=== PATIENT | female | born 1965 | race Two or more races ===

== ENCOUNTER 2024-05-05 09:59 | Outpatient (RCR) | payer MEDICAID, SELFPAY ==
[2024-05-03 08:55] LABS: Basophils # (Auto) 0.1 Thou/mm3 (0.0-0.2); Basophils % (Auto) 1 % (0-2.5); Eosinophils # (Auto) 0.1 Thou/mm3 (0.0-0.5); Eosinophils % (Auto) 2 % (0-10); Hematocrit 36.8 % (36.0-46.0); Hemoglobin 12.3 g/dL (12.0-16.0); Immature Granulocytes % (Auto) 0 % (0-0); Immature Granulocytes Auto 0.03 Thou/mm3 (0.00-0.00); Lymphocytes # (Auto) 2.5 Thou/mm3 (1.0-4.8); Lymphocytes % (Auto) 27 % (10-50); Mean Corpuscular HGB Conc 33.4 g/dl (31.0-37.0); Mean Corpuscular Hemoglobin 29.9 pg (25.0-35.0); Mean Corpuscular Volume 89 fL (80-100); Monocytes # (Auto) 0.8 Thou/mm3 (0.0-0.8); Monocytes % (Auto) 9 % (0-12); Neutrophils # (Auto) 5.7 Thou/mm3 (1.8-7.7); Neutrophils % (Auto) 62 % (37-80); Nucleated Red Blood Cell % 0 /100 WBC (0); Platelet Count 280 Thou/mm3 (140-440); RDW Standard Deviation 45.5 fL (36.4-46.3); Red Blood Count 4.12 Miln/mm3 (4.00-5.20); White Blood Count 9.2 Thou/mm3 (3.6-11.0)
[2024-05-03 09:12] LABS: Alanine Aminotransferase 56 U/L (10-49); Albumin, Serum 4.7 gm/dL (3.5-5.0); Albumin/Globulin Ratio 1.7 (1.2-2.2); Alkaline Phosphatase 163 U/L (46-116); Anion Gap 8 (7-16); Aspartate Amino Transferase 58 U/L (0-34); BUN/Creatinine Ratio 26 Ratio (12-20); Bilirubin,Total 0.3 mg/dL (0.3-1.2); Blood Urea Nitrogen 13 mg/dL (9-23); Calcium 10.1 mg/dL (8.3-10.6); Calcium (Corrected) 10.1 mg/dL (8.5-10.1); Carbon Dioxide 25.5 mMol/L (20.0-31.0); Chloride 104 mMol/L (98-107); Creatinine (Component) 0.5 mg/dL (0.6-1.3); Globulin 2.8 gm/dL (2.3-3.5); Glucose 211 mg/dL (74-106); Osmolality,Calculated 279 (275-295); Potassium 4.2 mMol/L (3.4-5.1); Sodium 137 mMol/L (136-145); Total Protein 7.5 gm/dL (5.7-8.2); eGFR > 60 See Note
[2024-05-03 09:22] LABS: Carcinoembryonic Antigen 3.4 ng/mL (0.0-5.0)
== END 2024-05-20 23:59 | disposition home or self-care (01) ==
LOC: SCTC 09:59
PROVIDERS: PCP Physician Assistant; Referring Provider Physician Assistant; Visit Provider Internal Medicine Hematology & Oncology
DX: Z51.11 Encounter for antineoplastic chemotherapy (principal); C19 Malignant neoplasm of rectosigmoid junction; C78.7 Secondary malignant neoplasm of liver and intrahepatic bile duct; E11.42 Type 2 diabetes mellitus with diabetic polyneuropathy; Z79.84 Long term (current) use of oral hypoglycemic drugs; Z79.4 Long term (current) use of insulin; I10 Essential (primary) hypertension; E66.9 Obesity, unspecified; Z68.33 Body mass index [BMI] 33.0-33.9, adult; R91.1 Solitary pulmonary nodule
CPT/HCPCS: 80053; 82378; 85025; 96366; 96367; 96375; 96413; 96416; A4216; J0640; J1100; J1200; J1453; J1642; J2405; J3490; J9055; J9190

== ENCOUNTER 2024-06-09 09:30 | Outpatient (RCR) | payer MEDICAID, SELFPAY ==
[2024-05-24 08:20] LABS: Basophils # (Auto) 0.1 Thou/mm3 (0.0-0.2); Basophils % (Auto) 1 % (0-2.5); Eosinophils # (Auto) 0.1 Thou/mm3 (0.0-0.5); Eosinophils % (Auto) 1 % (0-10); Hematocrit 36.9 % (36.0-46.0); Hemoglobin 12.4 g/dL (12.0-16.0); Immature Granulocytes % (Auto) 1 % (0-0); Immature Granulocytes Auto 0.05 Thou/mm3 (0.00-0.00); Lymphocytes # (Auto) 2.6 Thou/mm3 (1.0-4.8); Lymphocytes % (Auto) 29 % (10-50); Mean Corpuscular HGB Conc 33.6 g/dl (31.0-37.0); Mean Corpuscular Hemoglobin 29.7 pg (25.0-35.0); Mean Corpuscular Volume 89 fL (80-100); Monocytes # (Auto) 0.6 Thou/mm3 (0.0-0.8); Monocytes % (Auto) 7 % (0-12); Neutrophils # (Auto) 5.5 Thou/mm3 (1.8-7.7); Neutrophils % (Auto) 61 % (37-80); Nucleated Red Blood Cell % 0 /100 WBC (0); Platelet Count 303 Thou/mm3 (140-440); Red Blood Count 4.17 Miln/mm3 (4.00-5.20)
[2024-05-24 08:42] LABS: Alanine Aminotransferase 53 U/L (10-49); Alkaline Phosphatase 192 U/L (46-116); Anion Gap 11 (7-16); Aspartate Amino Transferase 56 U/L (0-34); BUN/Creatinine Ratio 22 Ratio (12-20); Bilirubin,Total 0.3 mg/dL (0.3-1.2); Blood Urea Nitrogen 13 mg/dL (9-23); Calcium 9.9 mg/dL (8.3-10.6); Calcium (Corrected) 9.9 mg/dL (8.5-10.1); Carbon Dioxide 24.5 mMol/L (20.0-31.0); Chloride 102 mMol/L (98-107); Creatinine (Component) 0.6 mg/dL (0.6-1.3); Globulin 2.5 gm/dL (2.3-3.5); Glucose 246 mg/dL (74-106); Osmolality,Calculated 281 (275-295); Potassium 4.1 mMol/L (3.4-5.1); Sodium 137 mMol/L (136-145); Total Protein 7.5 gm/dL (5.7-8.2); eGFR > 60 See Note
[2024-05-24 09:01] LABS: Carcinoembryonic Antigen 2.8 ng/mL (0.0-5.0)
[2024-06-07 08:32] LABS: Basophils % (Auto) 0 % (0-2.5); Eosinophils # (Auto) 0.2 Thou/mm3 (0.0-0.5); Eosinophils % (Auto) 2 % (0-10); Hematocrit 35.8 % (36.0-46.0); Immature Granulocytes % (Auto) 0 % (0-0); Immature Granulocytes Auto 0.03 Thou/mm3 (0.00-0.00); Lymphocytes # (Auto) 2.8 Thou/mm3 (1.0-4.8); Lymphocytes % (Auto) 27 % (10-50); Mean Corpuscular HGB Conc 33.5 g/dl (31.0-37.0); Mean Corpuscular Volume 87 fL (80-100); Monocytes # (Auto) 0.7 Thou/mm3 (0.0-0.8); Monocytes % (Auto) 7 % (0-12); Neutrophils # (Auto) 6.4 Thou/mm3 (1.8-7.7); Neutrophils % (Auto) 63 % (37-80); Nucleated Red Blood Cell % 0 /100 WBC (0); Platelet Count 263 Thou/mm3 (140-440); RDW Standard Deviation 41.5 fL (36.4-46.3); Red Blood Count 4.14 Miln/mm3 (4.00-5.20); White Blood Count 10.1 Thou/mm3 (3.6-11.0)
[2024-06-07 08:54] LABS: Alanine Aminotransferase 48 U/L (10-49); Albumin, Serum 4.8 gm/dL (3.5-5.0); Albumin/Globulin Ratio 1.8 (1.2-2.2); Alkaline Phosphatase 166 U/L (46-116); Anion Gap 9 (7-16); Aspartate Amino Transferase 50 U/L (0-34); BUN/Creatinine Ratio 22 Ratio (12-20); Bilirubin,Total 0.3 mg/dL (0.3-1.2); Blood Urea Nitrogen 13 mg/dL (9-23); Calcium 9.8 mg/dL (8.3-10.6); Calcium (Corrected) 9.8 mg/dL (8.5-10.1); Carbon Dioxide 25.6 mMol/L (20.0-31.0); Chloride 101 mMol/L (98-107); Creatinine (Component) 0.6 mg/dL (0.6-1.3); Globulin 2.7 gm/dL (2.3-3.5); Glucose 182 mg/dL (74-106); Osmolality,Calculated 277 (275-295); Potassium 4.2 mMol/L (3.4-5.1); Sodium 136 mMol/L (136-145); Total Protein 7.5 gm/dL (5.7-8.2); eGFR > 60 See Note
[2024-06-07 08:57] LABS: Carcinoembryonic Antigen 3.2 ng/mL (0.0-5.0)
--- NOTE | 2024-06-18 23:49 | CTCFLWUP_ITS ---
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 K-corina wild-type, NRAS wild-type Peripheral neuropathy secondary to diabetes as well as previous oxali platin which was given in the adjuvant setting. 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 2018 patient started to have rectal bleeding. 05/16/2019: Patient had EGD? May 2020: Patient had colonoscopy done in [place] by colon cancer. I was not able to ge t pathology report and colonoscopppy report. 07/04/2020: Patient had colon surgery? pathology report showed the following. 08/21/2020: My risk genetic test? 09/10/2020?November 2020: Patient was treated with 3 months of Cape ox chemotherapy in the adjuvant settin g. 10/05/2020: PET CT scan negative. 01/02/2021: CEA 4.3. 05/09/2021: CEA 2.8. 06/05/2021: CT scan of the chest abdomen and pelvis with IV contrast?negative for metastatic disease. 09/23/2021: CEA 3.9. 01/22/2022 CEA 3.3, hemoglobin 11.1, MCV 89, WBC 10.6, ANC 5.2, platelets 350,000. Creatinine 0.48. 08/31/2022: CEA 5.5. 12/29/2022: CEA 6.8. 11/09/2022: CT scan of the chest abdomen and pelvis with IV contrast 02/24/2023: CT-guided biopsy of the right lobe liver lesion? 11/28/2019: [facility] CDx study 03/24/2023: Ms. Medina is started on FOLFIRI plus bevacizumab. 08/05/2023: MRI of the abdomen with and without IV contrast 09/01/2023: Ms. Medina received her last dose of FOLFIRI and bevacizumab. 09/22/2023: CT scan of the chest abdomen and pelvis without contrast 10/13/2023: Patient is started on modified FOLFOX 7 and cetuximab. 11/04/2023: PET/CT scan? 02/03/2024: CT scan of the chest without IV contrast? 02/08/2024: MRI of the abdomen with and without contrast? 02/18/2024: Dr. Abhishek mcclelland of [facility] did not feel that Ms. Medina is a surgical candidate. OTHER MEDICAL HISTORY/CONDITIONS: FAMILY HISTORY: ?Clone Family Hx? 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 atorvastatin - 40 mg 1 tab Daily 2. Calcium 600 + D(3) - 600 mg(1,500mg) -200 unit 1 tab Daily 3. Compazine - 10 mg 1 tab Three times a day 4. cranberry extract - 650 mg 1 Capsule Daily 5. cyanocobalamin (vitamin B-12) - 1,000 mcg 1 tab Daily 6. fexofenadine - 180 mg 1 tab Daily 7. glipiZIDE - 10 mg 2 tab Twice a Day 8. HumuLIN N NPH Insulin KwikPen - 100 unit/mL (3 mL) 75 Unit As directed 9. HumuLIN R U-100 - 100 unit/mL As directed 10. Hydrocortisone (Topical) - 1 % 1 As directed 11. Imodium A-D - 2 mg 1 tab one tab po three times a day prn diarrhea 12. lisinopril - 10 mg 1 tab Daily 13. Lomotil - 2.5-0.025 mg 1 tab one po four times a day prn diarrhea 14. metFORMIN - 1,000 mg 1 tab Twice a Day 15. multivitamin - 1 tab Daily 16. Zofran - 8 mg 1 tab Three times a day?Palabra Meds? Medications Last Reconciled by Caprice Cerda MA on 06/05/2024 ALLERGIES: No Known Drug Allergies REVIEW OF SYSTEMS: A complete 14-point review of systems was performed and is negative except as noted in interval histo ry. PHYSICAL EXAMINATION: VITAL SIGNS: Temperature?99.2, B/P?127/83, Oxygen?Saturation?97% Weight?176?lbs (Change?since?05/26/24 :?-3.4?lbs) PAIN: 0 - No pain GENERAL APPEARANCE: Appears well, in no apparent distress, appropriately interactive. HEENT: Normocephalic, no temporal wasting, normal conjunctiva, no scleral icterus, normal hearing, li ps without lesions, neck normal range of motion. CARDIOVASCULAR: Not assessed. PULMONARY: Normal respiratory effort, no respiratory distress or use of accessory muscles, speaking i n full sentences, no tachypnea. EXTREMITIES: No pedal edema or cyanosis. SKIN: Normal skin appearance. NEUROLOGIC: Alert and oriented x4. PSHYCHIATRIC: Appropriate affect, mood normal, behavior normal, intact thought and speech. 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 K-corina wild-type, NRAS wild-type Peripheral neuropathy secondary to diabetes as well as previous oxaliplatin which was given in the ad juvant setting. 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 S/p surgery as described above. S/p 3 cycles of Cape ox c hemotherapy in the adjuvant setting. Ms. Medina is thought to be not a surgical candidate as per [facility] gastroenterology oncology department physician Dr. Abhishek mcclelland. MRI of the abdomen as well as CT scan of the chest showed stable disease as documented above. Ms. Medina had consultation with Dr. Hans Loya of gastrointestinal surgical oncology program. PET CT scan done on 11/04/2023 showed interval weekly hypermetabolic 15 mm pulmonary nodule in the rig ht upper lobe. No hypermetabolic areas were noted in the abdomen. on modified FOLFOX 7+ cetuximab since 10/13/2023. Tolerating reasonably well. Patient received FOLFIRI and bevacizumab previously \ Continue current therapy will repeat scans in 2 months #2 obesity diabetes and hypertension Patient have chronic medical conditions Advise diet and exercise and close follow-up with the primary care CBC CMP CEA CT scan chest abdomen pelvis with IV contrast RETURN TO CLINIC: I will see her back in the clinic in 2 months. BILLING AND COMPLIANCE: I reviewed external records from providers outside my specialty as summarized above. I spent a total of 50 minutes on this patient?s care on the day of their visit excluding time spent related to any bi lled procedures. This time includes time spent with the patient as well as time spent documenting in the medical record, reviewing patients records and tests, obtaining history, placing orders, communi cating with other healthcare professionals, counseling the patient, family or caregiver, and/or care coordination for the diagnoses above. Electronically Signed by: Leo Vee MD T: 11:47 PM CC: PCP: Donald Isaacs Referring: Donald Isaacs This document was completed utilizing speech recognition software. Grammatical errors, random word in sertions, pronoun errors, and incomplete sentences are an occasional consequence of this system due t o software limitations, ambient noise, and hardware issues. Any formal questions or concerns about e content, text or information contained within the body of this dictation should be directly address ed to the provider for clarification.
== END 2024-06-20 23:59 | disposition home or self-care (01) ==
LOC: SCTC 09:30
PROVIDERS: PCP Physician Assistant; Referring Provider Physician Assistant; Visit Provider Internal Medicine Hematology & Oncology
DX: Z51.11 Encounter for antineoplastic chemotherapy (principal); C19 Malignant neoplasm of rectosigmoid junction; C78.7 Secondary malignant neoplasm of liver and intrahepatic bile duct; E11.42 Type 2 diabetes mellitus with diabetic polyneuropathy; Z79.4 Long term (current) use of insulin; Z79.84 Long term (current) use of oral hypoglycemic drugs; I10 Essential (primary) hypertension; E66.9 Obesity, unspecified; Z68.33 Body mass index [BMI] 33.0-33.9, adult; R91.1 Solitary pulmonary nodule
CPT/HCPCS: 80053; 82378; 85025; 96367; 96375; 96413; 96416; 99212; A4216; J0640; J1100; J1200; J1453; J1642; J2405; J3490; J9055; J9190; G0463

== ENCOUNTER → 2024-07-06 | Outpatient (CLI) | payer MEDICAID, SELFPAY ==
--- NOTE | 2024-07-06 12:00 | XR_ITS ---
Examination: CT chest with intravenous contrast CT abdomen with intravenous contrast CT pelvis with intravenous contrast 2-D coronal and sagittal reconstructions Time of exam: July 06, 2024 1256 hours Comparison February 04, 2024 INDICATIONS: Diagnosis malignant neoplasm sigmoid colon 2022, metastases to lung and liver, shortness of breath right upper abdominal pain beginning 2 months ago CTDI: vol (mGy) : 22.3 DLP: (mGycm): 1010 Technique: Multiple axial images of the chest, abdomen and pelvis with intravenous contrast, 3.0 mm slice thickness. Images obtained post intravenous injection Isovue 370 60 cc. 2-D sagittal and coronal reconstructions. Low dose protocols were performed. One or more of the following dose reduction techniques were used; automated exposure control, adjustment of the mA and/or KV according to patient size, use of iterative reconstruction technique. Findings: 5 mm anterior right thyroid nodule No thoracic aortic aneurysmal dilatation No pulmonary artery emboli No interval pathologic mediastinal lymphadenopathy Stable right lung pulmonary nodules No pneumonia or pulmonary edema Stable 13 mm anterior 20 mm posterior right lobe liver lesions No new liver lesions Absent gallbladder Normal pancreas Spleen not enlarged No hydronephrosis or renal calculi Aorta normal size No ascites No bowel obstruction 7.8 cm anterior pelvic hernia defect containing colon no incarcerated bowel No pelvic mass Bladder intact IMPRESSION: 5 mm right thyroid nodule Stable right lung pulmonary nodules Stable right lobe liver lesions No interval abdominal or pelvic lymphadenopathy
== END | disposition home or self-care (01) ==
LOC: CCTX 11:31
PROVIDERS: PCP Physician Assistant; Referring Provider Internal Medicine Hematology & Oncology; Visit Provider Internal Medicine Hematology & Oncology
DX: E04.1 Nontoxic single thyroid nodule (principal); R91.8 Other nonspecific abnormal finding of lung field; K76.9 Liver disease, unspecified; C18.7 Malignant neoplasm of sigmoid colon; C78.7 Secondary malignant neoplasm of liver and intrahepatic bile duct
CPT/HCPCS: 71260; 74177; A4649; Q9967

== ENCOUNTER 2024-07-12 11:08 | Outpatient (RCR) | payer MEDICAID, SELFPAY ==
[2024-06-26 08:55] LABS: Basophils # (Auto) 0.1 Thou/mm3 (0.0-0.2); Basophils % (Auto) 1 % (0-2.5); Eosinophils # (Auto) 0.1 Thou/mm3 (0.0-0.5); Eosinophils % (Auto) 2 % (0-10); Hematocrit 37.1 % (36.0-46.0); Hemoglobin 12.3 g/dL (12.0-16.0); Immature Granulocytes % (Auto) 0 % (0-0); Immature Granulocytes Auto 0.03 Thou/mm3 (0.00-0.00); Lymphocytes # (Auto) 2.8 Thou/mm3 (1.0-4.8); Lymphocytes % (Auto) 31 % (10-50); Mean Corpuscular HGB Conc 33.2 g/dl (31.0-37.0); Mean Corpuscular Hemoglobin 28.9 pg (25.0-35.0); Mean Corpuscular Volume 87 fL (80-100); Monocytes # (Auto) 0.7 Thou/mm3 (0.0-0.8); Monocytes % (Auto) 8 % (0-12); Neutrophils # (Auto) 5.4 Thou/mm3 (1.8-7.7); Neutrophils % (Auto) 59 % (37-80); Nucleated Red Blood Cell % 0 /100 WBC (0); Platelet Count 303 Thou/mm3 (140-440); Red Blood Count 4.25 Miln/mm3 (4.00-5.20); White Blood Count 9.2 Thou/mm3 (3.6-11.0)
[2024-06-26 09:09] LABS: Alanine Aminotransferase 47 U/L (10-49); Albumin, Serum 4.8 gm/dL (3.5-5.0); Albumin/Globulin Ratio 1.8 (1.2-2.2); Alkaline Phosphatase 173 U/L (46-116); Anion Gap 9 (7-16); Aspartate Amino Transferase 55 U/L (0-34); BUN/Creatinine Ratio 22 Ratio (12-20); Bilirubin,Total 0.3 mg/dL (0.3-1.2); Blood Urea Nitrogen 13 mg/dL (9-23); Calcium 9.8 mg/dL (8.3-10.6); Calcium (Corrected) 9.8 mg/dL (8.5-10.1); Carbon Dioxide 24.9 mMol/L (20.0-31.0); Chloride 102 mMol/L (98-107); Creatinine (Component) 0.6 mg/dL (0.6-1.3); Globulin 2.7 gm/dL (2.3-3.5); Glucose 178 mg/dL (74-106); Osmolality,Calculated 276 (275-295); Potassium 4.4 mMol/L (3.4-5.1); Sodium 136 mMol/L (136-145); Total Protein 7.5 gm/dL (5.7-8.2); eGFR > 60 See Note
[2024-06-26 09:42] LABS: Carcinoembryonic Antigen 3.2 ng/mL (0.0-5.0)
[2024-07-10 09:12] LABS: Basophils # (Auto) 0.1 Thou/mm3 (0.0-0.2); Basophils % (Auto) 1 % (0-2.5); Eosinophils # (Auto) 0.2 Thou/mm3 (0.0-0.5); Eosinophils % (Auto) 2 % (0-10); Hematocrit 38.2 % (36.0-46.0); Hemoglobin 12.6 g/dL (12.0-16.0); Immature Granulocytes % (Auto) 0 % (0-0); Immature Granulocytes Auto 0.03 Thou/mm3 (0.00-0.00); Lymphocytes # (Auto) 2.7 Thou/mm3 (1.0-4.8); Lymphocytes % (Auto) 27 % (10-50); Mean Corpuscular Hemoglobin 28.9 pg (25.0-35.0); Mean Corpuscular Volume 88 fL (80-100); Monocytes # (Auto) 0.8 Thou/mm3 (0.0-0.8); Monocytes % (Auto) 8 % (0-12); Neutrophils # (Auto) 6.4 Thou/mm3 (1.8-7.7); Neutrophils % (Auto) 63 % (37-80); Nucleated Red Blood Cell % 0 /100 WBC (0); Platelet Count 289 Thou/mm3 (140-440); RDW Standard Deviation 40.7 fL (36.4-46.3); Red Blood Count 4.36 Miln/mm3 (4.00-5.20); White Blood Count 10.1 Thou/mm3 (3.6-11.0)
[2024-07-10 09:19] LABS: Alanine Aminotransferase 49 U/L (10-49); Albumin, Serum 4.7 gm/dL (3.5-5.0); Albumin/Globulin Ratio 1.6 (1.2-2.2); Alkaline Phosphatase 177 U/L (46-116); Anion Gap 9 (7-16); Aspartate Amino Transferase 54 U/L (0-34); BUN/Creatinine Ratio 23 Ratio (12-20); Bilirubin,Total 0.3 mg/dL (0.3-1.2); Blood Urea Nitrogen 14 mg/dL (9-23); Carbon Dioxide 24.6 mMol/L (20.0-31.0); Chloride 103 mMol/L (98-107); Creatinine (Component) 0.6 mg/dL (0.6-1.3); Globulin 2.9 gm/dL (2.3-3.5); Glucose 258 mg/dL (74-106); Osmolality,Calculated 283 (275-295); Potassium 4.3 mMol/L (3.4-5.1); Sodium 137 mMol/L (136-145); Total Protein 7.6 gm/dL (5.7-8.2); eGFR > 60 See Note
[2024-07-10 09:23] LABS: Carcinoembryonic Antigen 3.3 ng/mL (0.0-5.0)
== END 2024-07-21 23:59 | disposition home or self-care (01) ==
LOC: SCTC 11:08
PROVIDERS: PCP Physician Assistant; Referring Provider Physician Assistant; Visit Provider Internal Medicine Hematology & Oncology
DX: Z51.11 Encounter for antineoplastic chemotherapy (principal); C19 Malignant neoplasm of rectosigmoid junction; C78.7 Secondary malignant neoplasm of liver and intrahepatic bile duct; E11.42 Type 2 diabetes mellitus with diabetic polyneuropathy; Z79.4 Long term (current) use of insulin; Z79.84 Long term (current) use of oral hypoglycemic drugs; Z90.49 Acquired absence of other specified parts of digestive tract; R91.1 Solitary pulmonary nodule; I10 Essential (primary) hypertension; E66.9 Obesity, unspecified; Z68.33 Body mass index [BMI] 33.0-33.9, adult
CPT/HCPCS: 80053; 82378; 85025; 96367; 96375; 96413; 96416; A4216; J0640; J1100; J1200; J1453; J1642; J2405; J7050; J9055; J9190

== ENCOUNTER 2024-08-17 07:51 | Outpatient (RCR) | payer MEDICAID, SELFPAY ==
[2024-07-24 08:26] LABS: Basophils # (Auto) 0.1 Thou/mm3 (0.0-0.2); Basophils % (Auto) 1 % (0-2.5); Eosinophils # (Auto) 0.2 Thou/mm3 (0.0-0.5); Eosinophils % (Auto) 2 % (0-10); Hematocrit 37.1 % (36.0-46.0); Hemoglobin 12.3 g/dL (12.0-16.0); Immature Granulocytes % (Auto) 0 % (0-0); Immature Granulocytes Auto 0.02 Thou/mm3 (0.00-0.00); Lymphocytes # (Auto) 2.6 Thou/mm3 (1.0-4.8); Lymphocytes % (Auto) 27 % (10-50); Mean Corpuscular HGB Conc 33.2 g/dl (31.0-37.0); Mean Corpuscular Hemoglobin 29.5 pg (25.0-35.0); Mean Corpuscular Volume 89 fL (80-100); Monocytes # (Auto) 0.7 Thou/mm3 (0.0-0.8); Monocytes % (Auto) 7 % (0-12); Neutrophils # (Auto) 6.2 Thou/mm3 (1.8-7.7); Neutrophils % (Auto) 64 % (37-80); Nucleated Red Blood Cell % 0 /100 WBC (0); Platelet Count 291 Thou/mm3 (140-440); Red Blood Count 4.17 Miln/mm3 (4.00-5.20); White Blood Count 9.7 Thou/mm3 (3.6-11.0)
[2024-07-24 08:55] LABS: Alanine Aminotransferase 40 U/L (10-49); Albumin, Serum 4.6 gm/dL (3.5-5.0); Albumin/Globulin Ratio 1.6 (1.2-2.2); Alkaline Phosphatase 186 U/L (46-116); Anion Gap 12 (7-16); Aspartate Amino Transferase 41 U/L (0-34); BUN/Creatinine Ratio 17 Ratio (12-20); Bilirubin,Total 0.2 mg/dL (0.3-1.2); Blood Urea Nitrogen 10 mg/dL (9-23); Calcium 9.2 mg/dL (8.3-10.6); Calcium (Corrected) 9.2 mg/dL (8.5-10.1); Carbon Dioxide 24.3 mMol/L (20.0-31.0); Chloride 104 mMol/L (98-107); Creatinine (Component) 0.6 mg/dL (0.6-1.3); Globulin 2.8 gm/dL (2.3-3.5); Glucose 240 mg/dL (74-106); Osmolality,Calculated 286 (275-295); Potassium 4.2 mMol/L (3.4-5.1); Sodium 140 mMol/L (136-145); Total Protein 7.4 gm/dL (5.7-8.2); eGFR > 60 See Note
[2024-07-24 08:59] LABS: Carcinoembryonic Antigen 3.1 ng/mL (0.0-5.0)
--- NOTE | 2024-08-08 14:18 | CTCFLWUP_ITS ---
Patient: SILVA MEDINA : 1965 Page 2 of 2 FOLLOW UP NOTE DATE OF SERVICE: 08/08/2024 NAME: SILVA MEDINA ACCOUNT: [id number] : 1965 AGE: 58 INTERVAL HISTORY: Patient doing well and tolerating chemotherapy. Patient is here to discuss the results of her CT scan and labs. Patient is scheduled for chemotherapy tomorrow. Patient is requesting a referral to general surgeon for hernia repair. Patient also want to get her teeth fixed. 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 K-corina wild-type, NRAS wild-type Peripheral neuropathy secondary to diabetes as well as previous oxaliplatin which was given in the adjuvant setting. 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 2019 patient started to have rectal bleeding. 05/16/2019: Patient had EGD? May 2020: Patient had colonoscopy done in [place] by colon cancer. I was not able to get pathology report and colonoscopppy report. 07/04/2020: Patient had colon surgery? pathology report showed the following. 08/21/2020: My risk genetic test? 09/10/2020?November 2020: Patient was treated with 3 months of Cape ox chemotherapy in the adjuvant setting. 10/05/2020: PET CT scan negative. 01/02/2021: CEA 4.3. 05/09/2021: CEA 2.8. 06/05/2021: CT scan of the chest abdomen and pelvis with IV contrast?negative for metastatic disease. 09/23/2021: CEA 3.9. 01/22/2022 CEA 3.3, hemoglobin 11.1, MCV 89, WBC 10.6, ANC 5.2, platelets 350,000. Creatinine 0.48. 08/31/2022: CEA 5.5. 12/29/2022: CEA 6.8. 11/09/2022: CT scan of the chest abdomen and pelvis with IV contrast 02/24/2023: CT-guided biopsy of the right lobe liver lesion? [facility]2019[facility] 03/24/2023: Ms. Medina is started on FOLFIRI plus bevacizumab. 08/05/2023: MRI of the abdomen with and without IV contrast 09/01/2023: Ms. Medina received her last dose of FOLFIRI and bevacizumab. 09/22/2023: CT scan of the chest abdomen and pelvis without contrast 10/13/2023: Patient is started on modified FOLFOX 7 and cetuximab. 11/04/2023: PET/CT scan? 02/03/2024: CT scan of the chest without IV contrast? 02/08/2024: MRI of the abdomen with and without contrast? 02/18/2024: Dr. Abhishek mcclelland of [facility] did not feel that Ms. Medina is a surgical candidate. 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 atorvastatin - 40 mg 1 tab Daily 2. Calcium 600 + D(3) - 600 mg(1,500mg) -200 unit 1 tab Daily 3. Compazine - 10 mg 1 tab Three times a day 4. cranberry extract - 650 mg 1 Capsule Daily 5. cyanocobalamin (vitamin B-12) - 1,000 mcg 1 tab Daily 6. fexofenadine - 180 mg 1 tab Daily 7. glipiZIDE - 10 mg 2 tab Twice a Day 8. HumuLIN N NPH Insulin KwikPen - 100 unit/mL (3 mL) 75 Unit As directed 9. HumuLIN R U-100 - 100 unit/mL As directed 10. Hydrocortisone (Topical) - 1 % 1 As directed 11. Imodium A-D - 2 mg 1 tab one tab po three times a day prn diarrhea 12. lisinopril - 10 mg 1 tab Daily 13. Lomotil - 2.5-0.025 mg 1 tab one po four times a day prn diarrhea 14. metFORMIN - 1,000 mg 1 tab Twice a Day 15. multivitamin - 1 tab Daily 16. ondansetron - 8 mg 1 tab every 8 hours as needed for nausea Medications Last Reconciled by Genesis Gómez MA on 08/08/2024 ALLERGIES: No Known Drug Allergies REVIEW OF SYSTEMS: A complete 14-point review of systems was performed and is negative except as noted in interval history. PHYSICAL EXAMINATION: VITAL SIGNS: PAIN: 0 - No pain ECOG Performance Status: 1 - Symptomatic; ambulatory; restricted in strenuous activity GENERAL APPEARANCE: Appears well, in no apparent distress, appropriately interactive. HEENT: Normocephalic, no temporal wasting, normal conjunctiva, no scleral icterus, normal hearing, lips without lesions, neck normal range of motion. CARDIOVASCULAR: Not assessed. PULMONARY: Normal respiratory effort, no respiratory distress or use of accessory muscles, speaking in full sentences, no tachypnea. EXTREMITIES: No pedal edema or cyanosis. SKIN: Normal skin appearance. NEUROLOGIC: Alert and oriented x4. PSHYCHIATRIC: Appropriate affect, mood normal, behavior normal, intact thought and speech. LABORATORY DATA: I have personally reviewed and interpreted each of the patient?s relevant lab tests, abnormal findings are below: Date 07/24/24 ??GLUCOSE,RANDOM?(mg/dL) 240?H ??BLOOD?UREA?NITROGEN?(mg/dL) 10 ??CREATININE?(mg/dL) 0.60 ??SODIUM?(mmol/L) 140 ??POTASSIUM?(mmol/L) 4.2 ??CHLORIDE?(mmol/L) 104 ??CrCl?(CandG)?(ml/min) 102.00 ??AST/SGOT?(Unit/L) 41?H ??ALT/SGPT?(Unit/L) 40 ??ALKALINE?PHOSPHATASE?(Unit/L) 186?H ??BILIRUBIN,?TOTAL?(mg/dL) 0.2?L ??PROTEIN?TOTAL?(gm/dl) 7.4 ??ALBUMIN,?SERUM?(gm/dl) 4.6 ??GLOBULIN?(gm/dl) 2.8 ??ALBUMIN/GLOBULIN?RATIO 1.6 ??CALCIUM,?SERUM?(mg/dL) 9.2 ??CALCIUM?SERUM?(CORRECTED)?(mg/dL) 9.2 ASSESSMENT/PLAN: #1 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 K-corina wild-type, NRAS wild-type Peripheral neuropathy secondary to diabetes as well as previous oxaliplatin which was given in the adjuvant setting. 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 S/p surgery as described above. S/p 3 cycles of Cape ox chemotherapy in the adjuvant setting. Ms. Medina is thought to be not a surgical candidate as per [facility] gastroenterology oncology department physician Dr. Abhishek mcclelland. Ms. Medina had consultation with Dr. Hans Loya of gastrointestinal surgical oncology program. PET CT scan done on 11/04/2023 showed interval weekly hypermetabolic 15 mm pulmonary nodule in the right upper lobe. No hypermetabolic areas were noted in the abdomen. on modified FOLFOX 7+ cetuximab since 10/13/2023. Tolerating reasonably well. Patient received FOLFIRI and bevacizumab previously Reviewed scans and shows stable disease. Patient's CEA also very low Patient is likely in remission Patient is receiving 5-FU leucovorin and cetuximab. Oxaliplatin was discontinued I will order Naterra a to see if patient is in complete remission and monitor her further with the CT DNA Patient will receive chemotherapy tomorrow I will give her chemo break after that Patient can schedule her dental as well as general surgery appointment in 3 weeks from now Will follow-up on Matera testing and labs in 6 weeks #2 obesity diabetes and hypertension Patient have chronic medical conditions Advise diet and exercise and close follow-up with the primary care Patient also have abdominal hernia. Patient will request PCP to refer to general surgery for hernia repair. Patient also already have established care with general surgeon Dr. Stein I encouraged her to talk to him. CBC CMP CEA CT scan chest abdomen pelvis with IV contrast reviewed CBC CMP CEA Naterra RETURN TO CLINIC: 6 weeks BILLING AND COMPLIANCE: I reviewed external records from providers outside my specialty as summarized above. I spent a total of 50 minutes on this patient?s care on the day of their visit excluding time spent related to any billed procedures. This time includes time spent with the patient as well as time spent documenting in the medical record, reviewing patients records and tests, obtaining history, placing orders, communicating with other healthcare professionals, counseling the patient, family or caregiver, and/or care coordination for the diagnoses above. Electronically Signed by: Leo Vee MD T: 2:16 PM CC: PCP: Donald Isaacs Referring: Donald Isaacs This document was completed utilizing speech recognition software. Grammatical errors, random word insertions, pronoun errors, and incomplete sentences are an occasional consequence of this system due to software limitations, ambient noise, and hardware issues. Any formal questions or concerns about the content, text or information contained within the body of this dictation should be directly addressed to the provider for clarification.
[2024-08-09 08:39] LABS: Basophils # (Auto) 0.1 Thou/mm3 (0.0-0.2); Basophils % (Auto) 1 % (0-2.5); Eosinophils # (Auto) 0.3 Thou/mm3 (0.0-0.5); Eosinophils % (Auto) 3 % (0-10); Hematocrit 36.8 % (36.0-46.0); Hemoglobin 12.5 g/dL (12.0-16.0); Immature Granulocytes % (Auto) 0 % (0-0); Immature Granulocytes Auto 0.02 Thou/mm3 (0.00-0.00); Lymphocytes # (Auto) 2.8 Thou/mm3 (1.0-4.8); Lymphocytes % (Auto) 31 % (10-50); Mean Corpuscular Hemoglobin 29.2 pg (25.0-35.0); Mean Corpuscular Volume 86 fL (80-100); Monocytes # (Auto) 0.7 Thou/mm3 (0.0-0.8); Monocytes % (Auto) 8 % (0-12); Neutrophils # (Auto) 5.2 Thou/mm3 (1.8-7.7); Neutrophils % (Auto) 57 % (37-80); Nucleated Red Blood Cell % 0 /100 WBC (0); Platelet Count 273 Thou/mm3 (140-440); RDW Standard Deviation 41.3 fL (36.4-46.3); Red Blood Count 4.28 Miln/mm3 (4.00-5.20); White Blood Count 9.1 Thou/mm3 (3.6-11.0)
[2024-08-09 09:05] LABS: Carcinoembryonic Antigen 3.1 ng/mL (0.0-5.0)
[2024-08-09 09:06] LABS: Alanine Aminotransferase 44 U/L (10-49); Albumin, Serum 4.5 gm/dL (3.5-5.0); Albumin/Globulin Ratio 1.6 (1.2-2.2); Alkaline Phosphatase 190 U/L (46-116); Anion Gap 10 (7-16); Aspartate Amino Transferase 37 U/L (0-34); BUN/Creatinine Ratio 18 Ratio (12-20); Bilirubin,Total 0.2 mg/dL (0.3-1.2); Blood Urea Nitrogen 11 mg/dL (9-23); Calcium 9.9 mg/dL (8.3-10.6); Calcium (Corrected) 9.9 mg/dL (8.5-10.1); Chloride 103 mMol/L (98-107); Creatinine (Component) 0.6 mg/dL (0.6-1.3); Globulin 2.8 gm/dL (2.3-3.5); Glucose 250 mg/dL (74-106); Osmolality,Calculated 284 (275-295); Potassium 4.2 mMol/L (3.4-5.1); Sodium 139 mMol/L (136-145); Total Protein 7.3 gm/dL (5.7-8.2); eGFR > 60 See Note
== END 2024-08-18 23:59 | disposition home or self-care (01) ==
LOC: SCTC 07:51
PROVIDERS: PCP Physician Assistant; Referring Provider Physician Assistant; Visit Provider Internal Medicine Hematology & Oncology
DX: Z51.11 Encounter for antineoplastic chemotherapy (principal); C19 Malignant neoplasm of rectosigmoid junction; C78.7 Secondary malignant neoplasm of liver and intrahepatic bile duct; E11.42 Type 2 diabetes mellitus with diabetic polyneuropathy; G62.0 Drug-induced polyneuropathy; T45.1X5D Adverse effect of antineoplastic and immunosuppressive drugs, subsequent encounter; R91.1 Solitary pulmonary nodule; I10 Essential (primary) hypertension; E66.9 Obesity, unspecified; Z68.33 Body mass index [BMI] 33.0-33.9, adult; K46.9 Unspecified abdominal hernia without obstruction or gangrene; Z79.4 Long term (current) use of insulin; Z79.84 Long term (current) use of oral hypoglycemic drugs
CPT/HCPCS: 36591; 80053; 82378; 85025; 96367; 96375; 96413; 96416; 99212; A4216; J0640; J1100; J1200; J1453; J1642; J2405; J7050; J9055; J9190; G0463

== ENCOUNTER 2024-09-25 11:22 | Outpatient (RCR) | payer MEDICAID, SELFPAY ==
[2024-09-20 09:01] LABS: Basophils # (Auto) 0.1 Thou/mm3 (0.0-0.2); Basophils % (Auto) 1 % (0-2.5); Eosinophils # (Auto) 0.2 Thou/mm3 (0.0-0.5); Eosinophils % (Auto) 2 % (0-10); Hematocrit 35.6 % (36.0-46.0); Immature Granulocytes % (Auto) 0 % (0-0); Immature Granulocytes Auto 0.03 Thou/mm3 (0.00-0.00); Lymphocytes # (Auto) 3.4 Thou/mm3 (1.0-4.8); Lymphocytes % (Auto) 30 % (10-50); Mean Corpuscular HGB Conc 33.7 g/dl (31.0-37.0); Mean Corpuscular Hemoglobin 29.1 pg (25.0-35.0); Mean Corpuscular Volume 86 fL (80-100); Monocytes # (Auto) 0.7 Thou/mm3 (0.0-0.8); Monocytes % (Auto) 7 % (0-12); Neutrophils # (Auto) 6.7 Thou/mm3 (1.8-7.7); Neutrophils % (Auto) 60 % (37-80); Nucleated Red Blood Cell % 0 /100 WBC (0); Platelet Count 308 Thou/mm3 (140-440); RDW Standard Deviation 40.3 fL (36.4-46.3); Red Blood Count 4.12 Miln/mm3 (4.00-5.20); White Blood Count 11.1 Thou/mm3 (3.6-11.0)
[2024-09-20 09:24] LABS: Alanine Aminotransferase 40 U/L (10-49); Albumin, Serum 4.6 gm/dL (3.5-5.0); Albumin/Globulin Ratio 1.6 (1.2-2.2); Alkaline Phosphatase 167 U/L (46-116); Anion Gap 10 (7-16); Aspartate Amino Transferase 44 U/L (0-34); BUN/Creatinine Ratio 20 Ratio (12-20); Bilirubin,Total 0.3 mg/dL (0.3-1.2); Blood Urea Nitrogen 14 mg/dL (9-23); Calcium 9.7 mg/dL (8.3-10.6); Calcium (Corrected) 9.7 mg/dL (8.5-10.1); Carbon Dioxide 24.4 mMol/L (20.0-31.0); Chloride 104 mMol/L (98-107); Creatinine (Component) 0.7 mg/dL (0.6-1.3); Globulin 2.8 gm/dL (2.3-3.5); Glucose 260 mg/dL (74-106); Osmolality,Calculated 285 (275-295); Potassium 4.5 mMol/L (3.4-5.1); Sodium 138 mMol/L (136-145); Total Protein 7.4 gm/dL (5.7-8.2); eGFR > 60 See Note
[2024-09-20 09:26] LABS: Carcinoembryonic Antigen 3.4 ng/mL (0.0-5.0)
--- NOTE | 2024-09-25 13:33 | CTCFLWUP_ITS ---
Patient: SILVA MEDINA : 1965 Page 2 of 2 FOLLOW UP NOTE DATE OF SERVICE: 09/25/2024 NAME: SILVA MEDINA ACCOUNT: [id number] : 1965 AGE: 58 INTERVAL HISTORY: Patient s chemotherapy was held as patient was planning for hernia and dental rapirs . Patient is now scheduled for surgery in october 2024 and yet to see dentist . 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 K-corina wild-type, NRAS wild-type Peripheral neuropathy secondary to diabetes as well as previous oxaliplatin which was given in the adjuvant setting. 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 2019 patient started to have rectal bleeding. 05/16/2019: Patient had EGD? May 2020: Patient had colonoscopy done in [place] by colon cancer. I was not able to get pathology report and colonoscopppy report. 07/04/2020: Patient had colon surgery? pathology report showed the following. 08/21/2020: My risk genetic test? 09/10/2020?November 2020: Patient was treated with 3 months of Cape ox chemotherapy in the adjuvant setting. 10/05/2020: PET CT scan negative. 01/02/2021: CEA 4.3. 05/09/2021: CEA 2.8. 06/05/2021: CT scan of the chest abdomen and pelvis with IV contrast?negative for metastatic disease. 09/23/2021: CEA 3.9. 01/22/2022 CEA 3.3, hemoglobin 11.1, MCV 89, WBC 10.6, ANC 5.2, platelets 350,000. Creatinine 0.48. 08/31/2022: CEA 5.5. 12/29/2022: CEA 6.8. 11/09/2022: CT scan of the chest abdomen and pelvis with IV contrast 02/24/2023: CT-guided biopsy of the right lobe liver lesion? 11/28/2019: [facility] [place] CDx study 03/24/2023: Ms. Medina is started on FOLFIRI plus bevacizumab. 08/05/2023: MRI of the abdomen with and without IV contrast 09/01/2023: Ms. Medina received her last dose of FOLFIRI and bevacizumab. 09/22/2023: CT scan of the chest abdomen and pelvis without contrast 10/13/2023: Patient is started on modified FOLFOX 7 and cetuximab. 11/04/2023: PET/CT scan? 02/03/2024: CT scan of the chest without IV contrast? 02/08/2024: MRI of the abdomen with and without contrast? 02/18/2024: Dr. Abhishek mcclelland of [facility] did not feel that Ms. Medina is a surgical candidate. OTHER MEDICAL HISTORY/CONDITIONS: FAMILY HISTORY: SOCIAL HISTORY: VP MEDICAL HISTORY: MEDICATIONS: 1. atorvastatin - 40 mg 1 tab Daily 2. Calcium 600 + D(3) - 600 mg(1,500mg) -200 unit 1 tab As directed 3. Compazine - 10 mg 1 tab Three times a day 4. cranberry extract - 650 mg 1 Capsule Daily 5. cyanocobalamin (vitamin B-12) - 1,000 mcg 1 tab Daily 6. fexofenadine - 180 mg 1 tab Daily 7. glipiZIDE - 10 mg 2 tab Twice a Day 8. HumuLIN N NPH Insulin KwikPen - 100 unit/mL (3 mL) 75 Unit As directed 9. HumuLIN R U-100 - 100 unit/mL As directed 10. Hydrocortisone (Topical) - 1 % 1 As directed 11. Imodium A-D - 2 mg 1 tab one tab po three times a day prn diarrhea 12. lisinopril - 10 mg 1 tab Daily 13. metFORMIN - 1,000 mg 1 tab Twice a Day 14. multivitamin - 1 tab Daily 15. ondansetron - 8 mg 1 tab every 8 hours as needed for nausea Medications Last Reconciled by Caprice Cerda MA on 09/25/2024 ALLERGIES: No Known Drug Allergies REVIEW OF SYSTEMS: A complete 14-point review of systems was performed and is negative except as noted in interval history. PHYSICAL EXAMINATION: VITAL SIGNS: Temperature?99.2, B/P?144/83, Oxygen?Saturation?98% Weight?178.2?lbs (Change?since?09/20/24:?0.8?lbs) PAIN: 0 - No pain ECOG Performance Status: 0 - Asymptomatic and fully active GENERAL APPEARANCE: Appears well, in no apparent distress, appropriately interactive. HEENT: Normocephalic, no temporal wasting, normal conjunctiva, no scleral icterus, normal hearing, lips without lesions, neck normal range of motion. CARDIOVASCULAR: Not assessed. PULMONARY: Normal respiratory effort, no respiratory distress or use of accessory muscles, speaking in full sentences, no tachypnea. EXTREMITIES: No pedal edema or cyanosis. SKIN: Normal skin appearance. NEUROLOGIC: Alert and oriented x4. PSHYCHIATRIC: Appropriate affect, mood normal, behavior normal, intact thought and speech. LABORATORY DATA: I have personally reviewed and interpreted each of the patient?s relevant lab tests, abnormal findings are below: Date 08/09/24 09/20/24 ??WHITE?BLOOD?COUNT?(Thou/mm3) 9.1 11.1?H ??RED?BLOOD?COUNT?(Miln/mm3) 4.28 4.12 ??HEMOGLOBIN?(gm/dl) 12.5 12.0 ??HEMATOCRIT?(%) 36.8 35.6?L ??PLATELET?COUNT?(Thou/mm3) 273 308 ??NEUTROPHILS?%,?AUTO?(%) 57 60 ??LYMPH?%,?AUTO?(%) 31 30 ??NEUTROPHILS,?AUTO?(Thou/mm3) 5.2 6.7 ??GLUCOSE,RANDOM?(mg/dL) ? 260?H ??BLOOD?UREA?NITROGEN?(mg/dL) ? 14 ??CREATININE?(mg/dL) ? 0.70 ??SODIUM?(mmol/L) ? 138 ??POTASSIUM?(mmol/L) ? 4.5 ??CHLORIDE?(mmol/L) ? 104 ??CrCl?(CandG)?(ml/min) ? 87.63 ??AST/SGOT?(Unit/L) ? 44?H ??ALT/SGPT?(Unit/L) ? 40 ??ALKALINE?PHOSPHATASE?(Unit/L) ? 167?H ??BILIRUBIN,?TOTAL?(mg/dL) ? 0.3 ??PROTEIN?TOTAL?(gm/dl) ? 7.4 ??ALBUMIN,?SERUM?(gm/dl) ? 4.6 ??GLOBULIN?(gm/dl) ? 2.8 ??ALBUMIN/GLOBULIN?RATIO ? 1.6 ??CALCIUM,?SERUM?(mg/dL) ? 9.7 ??CALCIUM?SERUM?(CORRECTED)?(mg/dL) ? 9.7 ??CEA?(O*)?(ng/ml) ? 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 K-corina wild-type, NRAS wild-type Peripheral neuropathy secondary to diabetes as well as previous oxaliplatin which was given in the adjuvant setting. 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 S/p surgery as described above. S/p 3 cycles of Cape ox chemotherapy in the adjuvant setting. Ms. Medina is thought to be not a surgical candidate as per [facility] gastroenterology oncology department physician Dr. Abhishek mcclelland. Ms. Medina had consultation with Dr. Hans Loya of gastrointestinal surgical oncology program. PET CT scan done on 11/04/2023 showed interval weekly hypermetabolic 15 mm pulmonary nodule in the right upper lobe. No hypermetabolic areas were noted in the abdomen. on modified FOLFOX 7+ cetuximab since 10/13/2023. Tolerating reasonably well. Patient received FOLFIRI and bevacizumab previously Reviewed scans and shows stable disease. Patient's CEA also very low Patient took chemo break and is off treatment She is scheduled for hernia treatment Will resume chemotherapy after hernia repair Naterra is positive #2 obesity diabetes and hypertension Patient have chronic medical conditions Advise diet and exercise and close follow-up with the primary care Patient also have abdominal hernia. Patient will request PCP to refer to general surgery for hernia repair. Patient also already have established care with general surgeon Dr. Stein I encouraged her to talk to him. CBC CMP CEA CT scan chest abdomen pelvis with IV contrast reviewed CBC CMP CEA Naterra ORDERS: Order # Description [id number] Comprehensive Metabolic Panel - 12 + CBC with Auto Diff + CEA [id number] CBC + Comprehensive Metabolic Panel + CEA [id number] Lab Appointment [id number] Follow Up Appointment MD RETURN TO CLINIC: 6 weeks BILLING AND COMPLIANCE: I reviewed external records from providers outside my specialty as summarized above. I spent a total of 50 minutes on this patient?s care on the day of their visit excluding time spent related to any billed procedures. This time includes time spent with the patient as well as time spent documenting in the medical record, reviewing patients records and tests, obtaining history, placing orders, communicating with other healthcare professionals, counseling the patient, family or caregiver, and/or care coordination for the diagnoses above. Electronically Signed by: Leo Vee MD T: 1:31 PM CC: PCP: Donald Isaacs Referring: Donald Isaacs This document was completed utilizing speech recognition software. Grammatical errors, random word insertions, pronoun errors, and incomplete sentences are an occasional consequence of this system due to software limitations, ambient noise, and hardware issues. Any formal questions or concerns about the content, text or information contained within the body of this dictation should be directly addressed to the provider for clarification.
== END 2024-10-18 23:59 | disposition home or self-care (01) ==
LOC: SCTC 11:22
PROVIDERS: PCP Physician Assistant; Referring Provider Physician Assistant; Visit Provider Internal Medicine Hematology & Oncology
DX: C19 Malignant neoplasm of rectosigmoid junction (principal); C78.7 Secondary malignant neoplasm of liver and intrahepatic bile duct; E11.42 Type 2 diabetes mellitus with diabetic polyneuropathy; Z79.4 Long term (current) use of insulin; Z79.84 Long term (current) use of oral hypoglycemic drugs; R91.1 Solitary pulmonary nodule; Z92.21 Personal history of antineoplastic chemotherapy; I10 Essential (primary) hypertension; E66.9 Obesity, unspecified; Z68.33 Body mass index [BMI] 33.0-33.9, adult; K46.9 Unspecified abdominal hernia without obstruction or gangrene
CPT/HCPCS: 36591; 80053; 82378; 85025; 99212; A4216; J1642; G0463

== ENCOUNTER 2024-11-16 18:53 | Inpatient (IN) | payer MEDICAID, SELFPAY ==
--- NOTE | 2024-11-15 10:32 | EKG_ITS ---
[facility] Test Date: 2024-11-15 Pat Name: KASSY FELIPE Department: Room: - Gender: Female Clinical Support Nurse: [facility] : 1965 Requested By: Devin Zhong Order Number: [id number] Reading MD: Devin Zhong Measurements Intervals [place] Rate: 89 P: 26 WY: 121 QRS: 29 QRSD: 86 T: 30 QT: 336 QTc: 411 Interpretive Statements SINUS RHYTHM POSSIBLE ANTERIOR MYOCARDIAL INFARCTION , OF INDETERMINATE AGE [30 ms Q WAVE IN V3/V4, OR R < 0.2 mV IN V4] Compared to ECG 10/07/2023 10:56:29 Myocardial infarct finding now present Ectopic atrial rhythm no longer present Short W[place] interval no longer present /store/S0/[id number]/[id number].pdf
[2024-11-15 11:06] VITALS: BMI 34.2
[2024-11-15 12:11] LABS: Collection Type, Urine Clean Catch
[2024-11-15 13:07] LABS: Bilirubin,Urine Negative (Negative); Blood,Urine Negative (Negative); Clarity,Urine Clear (Clear/Hazy); Color,Urine Colorless (Lt Yel-Yel); Glucose, Urine Trace (Negative); Ketones,Urine Negative (Negative); Leukocyte Esterase,Urine Positive (Negative); Nitrite,Urine Negative (Negative); PH,Urine 6.5 (5.0-7.0); Protein,Urine Negative (Neg - Trace); RBC,Urine 2 /hpf (0-3); Specific Gravity,Urine 1.007 (1.001-1.035); Squamous Epithelial Cell,Urine < 1 /hpf (0-5); Urobilinogen,Urine Negative mg/dL (0.0-1.0); WBC,Urine 4 /hpf (0-5)
[2024-11-15 13:13] LABS: Partial Thromboplastin Time 25.6 Seconds (22.0-36.0)
[2024-11-15 13:14] LABS: Basophils # (Auto) 0.1 Thou/mm3 (0.0-0.2); Basophils % (Auto) 1 % (0-2.5); Eosinophils # (Auto) 0.1 Thou/mm3 (0.0-0.5); Eosinophils % (Auto) 1 % (0-10); Hematocrit 34.2 % (36.0-46.0); Hemoglobin 11.4 g/dL (12.0-16.0); Immature Granulocytes % (Auto) 0 % (0-0); Immature Granulocytes Auto 0.04 Thou/mm3 (0.00-0.00); Lymphocytes # (Auto) 3.5 Thou/mm3 (1.0-4.8); Lymphocytes % (Auto) 33 % (10-50); Mean Corpuscular HGB Conc 33.3 g/dl (31.0-37.0); Mean Corpuscular Hemoglobin 27.9 pg (25.0-35.0); Mean Corpuscular Volume 84 fL (80-100); Monocytes # (Auto) 0.8 Thou/mm3 (0.0-0.8); Monocytes % (Auto) 8 % (0-12); Neutrophils % (Auto) 57 % (37-80); Nucleated Red Blood Cell % 0 /100 WBC (0); Platelet Count 298 Thou/mm3 (140-440); RDW Standard Deviation 37.4 fL (36.4-46.3); Red Blood Count 4.08 Miln/mm3 (4.00-5.20); White Blood Count 10.6 Thou/mm3 (3.6-11.0)
[2024-11-15 13:18] LABS: Alanine Aminotransferase 39 U/L (10-49); Albumin, Serum 4.6 gm/dL (3.5-5.0); Albumin/Globulin Ratio 1.8 (1.2-2.2); Alkaline Phosphatase 146 U/L (46-116); Anion Gap 12 (7-16); Aspartate Amino Transferase 38 U/L (0-34); BUN/Creatinine Ratio 20 Ratio (12-20); Bilirubin,Total 0.2 mg/dL (0.3-1.2); Blood Urea Nitrogen 12 mg/dL (9-23); Calcium 9.5 mg/dL (8.3-10.6); Calcium (Corrected) 9.5 mg/dL (8.5-10.1); Carbon Dioxide 27.5 mMol/L (20.0-31.0); Chloride 102 mMol/L (98-107); Creatinine (Component) 0.6 mg/dL (0.6-1.3); Estimated Creatinine Clearance 99.4 mL/min (>60); Globulin 2.6 gm/dL (2.3-3.5); Glucose 192 mg/dL (74-106); Osmolality,Calculated 285 (275-295); Potassium 4.1 mMol/L (3.4-5.1); Sodium 141 mMol/L (136-145); Total Protein 7.2 gm/dL (5.7-8.2); eGFR > 60 See Note
[2024-11-16] VITALS (13 sets, daily range): BP systolic 123–157; BP diastolic 73–86; PULSE 77–98; RESP 12–20; TEMP 36.1–37; O2SAT 95–100; BMI 33.7
--- NOTE | 2024-11-16 10:05 | CHAP ---
Visited briefly with patient giving encouragement and prayer.
--- NOTE | 2024-11-16 15:08 | SUR.PHASEI ---
1508: Pt. AAOx4, vitals stable, breathing unlabored, complaint of pain, will give pain medications, no complaint of nausea, dressing to ABD CDI, no active bleed noted, ABD Binder in place, [address] draining serosanguineous fluid, report received from MD Farris and Clau CUADRA.
[2024-11-16] MEDS: fentaNYL CIT INJ 50 mCg/ML AMP 2ML 25 MCG IVP ×7 (15:16→16:36)
--- NOTE | 2024-11-16 15:35 | PD.SUROPNT ---
Date of Procedure 11/16/24 Pre Op Diagnosis Personal history of colon cancer and multiple large ventral incisional hernias Post Op Diagnosis 7 ventral hernias all combined length of 20 cm x 10 cm. Procedure Repair of large ventral incarcerated hernias with component separation reconstruction of the abdominal wall and implantation of phasic ST patch. On 11/16/2024 Findings This patient has a long scar from xiphisternum to below the umbilicus. Upon exploration she was found to have multiple hernias with adhesions with the omentum and incarcerated omentum and the total length of the hernias was over 20 cm. There was marked thinning out of the abdominal wall. Procedure Description The patient is interviewed in the preoperative area and the procedure was discussed in detail with the patient including expectation of outcomes. Explanation of the technique and complications. An informed consent was obtained. Anesthesia consent was obtained by the anesthesiologist. The hernia sites were marked on the surface. Patient is brought back to the operating room. The patient is positioned supine on the operating table and general anesthesia is administered in a satisfactory manner. The chest abdomen and thigh genitalia regions are prepped and draped in usual manner. IV antibiotics were given and a timeout procedure was carried out. The hernia defects were identified and marked on the surface to assess the extent of the procedure. Vertical incision is made through the previous incision. Dissection is carried out in the subcutaneous tissue to the fascia and the 7 different defects are identified. Gentle dissection is carried out and hernia sacs are isolated. The sac is opened and was removed as specimen. There were significantly dense adhesions of the omentum within the hernia sac and surrounding subcutaneous tissue. The linea alba and rectus sheath were markedly attenuated. The contents of the hernia sacs are reduced. Hemostasis is achieved. Dissection is carried out circumferentially from the peritoneal side to make sure there were no adhesions and bowel attached to the anterior abdominal wall. Lysis of adhesions is carried out on the peritoneal side releasing the omental adhesions circumferentially to about 10 cm around. All the hernias defects were incorporated into one defect. The defect is measured. It is about 20.0 cm in length and 10 cm in the width. At this point it is very clear that the hernia defect cannot be repaired and the component separation and reconstruction of the abdominal wall is necessary. The rectus sheath is opened on both the sides of the abdomen. And the rectus muscle is lifted up. Then the posterior rectus sheath is mobilized by the transverse abdominis flap. The laps and instrument counts were obtained x 2 and they were correct. After that the posterior rectus sheath approximated with 0 Ethibond [id number] stitches. It came together nicely. Phasic ST patch is identified and is implanted below the rectus muscle covering the posterior rectus sheath repair. This is anchored in place with 0 Ethibond interrupted sutures. By separate stab incision 2 Colton-Ku drains were placed on each side over the patch and sutured to the skin using 3-0 nylon suture. After that the anterior rectus sheath is repaired over the patch. The patch is included into the repair of the anterior rectus sheath with 0 PDS continuous suture. Operative field is thoroughly irrigated with saline solution and the subcutaneous tissues approximated with 3-0 chromic interrupted suture. The skin is approximated by christian. Sterile dressing and abdominal binder is applied. Patient tolerated the procedure very well complications none. Patient is transferred to recovery room in a satisfactory condition. Anesthesia GETA Drains Colton-Ku x [address] patch[address] Pathology / specimen Other (Omentum and hernia sac) Estimated Blood Loss 20 Condition Stable Disposition PACU Surgeon Devin Zhong MD Surgical Staff Operation Date: 11/16/24 11:15 Case Staff Anesthesiologist: Toño Farris RN First Assistant: Ruby Kasper operating room surgical technician with a surgical technology student Pushpa
[2024-11-16] MEDS: RINGERS LACTATED 1000 ML 1,000 ML 40 ML IV (16:34)
--- NOTE | 2024-11-16 16:38 | SUR.PHASEII ---
1638: Pt. AAOx4, vitals stable, breathing unlabored, complaint of pain, pain med administered, no complaint of nausea, dressing to ABD CDI, ABD binder in place, UNA drain x2 in place, report given to Bob CUADRA to resume care of pt. Family updated.
--- NOTE | 2024-11-16 16:44 | SUR.PHASEII ---
1630 BEDSIDE REPORT RECIEVED FROM KISHA Feliciano RN.
--- NOTE | 2024-11-16 18:58 | SUR.PHASEII ---
AT 1830 REPORT GIVEN DUGLAS CUADRA.
--- NOTE | 2024-11-16 18:59 | SUR.PHASEII ---
1845 PATIENT TRANSFERRED TO ROOM 363 BY LEELA CUADRA AND LESTER RN IN STABLE CONDITION.
[2024-11-16] MEDS: HYDROmorphone INJ 2 MG/ML VIAL 1 MG IVP (19:41)
[2024-11-16] MEDS: ACETAMINOPHEN IVPB 1,000 MG/100 ML VIAL 250 MG IV (19:50)
[2024-11-16] MEDS: glipiZIDE 5 MG TABLET 20 MG PO (19:57)
[2024-11-16] MEDS: metFORMIN 500 MG TABLET 1000 MG PO (19:58)
[2024-11-16] MEDS: ONDANSETRON INJ 2 MG/ML INJ 2 ML 4 MG IVP (22:57)
[2024-11-17] VITALS (9 sets, daily range): BP systolic 115–149; BP diastolic 64–82; PULSE 84–104; RESP 16–18; TEMP 36.1–36.3; O2SAT 92–98; BMI 13.0
[2024-11-17] MEDS: HYDROmorphone INJ 2 MG/ML VIAL 1 MG IVP ×5 (00:23→20:04)
[2024-11-17] MEDS: ACETAMINOPHEN IVPB 1,000 MG/100 ML VIAL 250 MG IV ×3 (04:54→17:32)
[2024-11-17] MEDS: INSULIN HUM REGULAR 1 UNIT/0.01 ML (PER UNIT) SC ×3 (07:42→17:33)
[2024-11-17] MEDS: metFORMIN 500 MG TABLET 1000 MG PO ×2 (09:21→20:36)
[2024-11-17] MEDS: Lisinopril 2.5 MG TABLET 10 MG PO (09:21)
[2024-11-17] MEDS: PANTOPRAZOLE 40 MG TABLET PO (09:21)
[2024-11-17] MEDS: MULTIVITAMINS TABLET 1 TAB PO (09:21)
[2024-11-17] MEDS: glipiZIDE 5 MG TABLET 20 MG PO (09:21)
[2024-11-17] MEDS: lorataDINE 10 MG TABLET PO (09:21)
[2024-11-17] MEDS: VITAMIN B COMPLEX TABLET 1 TAB PO (09:26)
[2024-11-17] MEDS: INSULIN NPH 1 UNIT/0.01 ML (PER UNIT) 70 UNIT SC ×2 (09:32→20:35)
[2024-11-17] MEDS: ONDANSETRON INJ 2 MG/ML INJ 2 ML 4 MG IVP (11:23)
--- NOTE | 2024-11-17 11:45 | ESPR_ITS ---
Documentation for date of: 11/17/24 Subjective Subjective Brief History: This is a 59-year-old female she has a history of colon cancer resection metastatic to the liver she has been getting chemotherapy. She developed large ventral hernias that required repair. This was carried out on 11/16/2024. She has drains in place Colton-Ku is draining 50 cc on each side. She is tolerating clear liquid diet that will be advanced to regular diet she is not getting out of the bed physical therapy is here to help her get out of bed. The Sánchez catheter was removed.. She is obese and she has sleep apnea so she has to sleep upright otherwise if there are no other issues. Exam Vital Signs Temp Pulse Resp BP Pulse Ox O2 Del Method O2 Flow Rate 97.1 F 87 17 137/79 H 96 Nasal Cannula 2 11/17/24 08:00 11/17/24 09:21 11/17/24 08:00 11/17/24 09:21 11/17/24 08:00 11/17/24 08:00 11/17/24 08:00 Narrative Exam Patient is in the room needing assistance to get out of the bed. She said that she got out of the bed in the chair this morning. Then she had the have to put it put her back into the bed because she was desaturating. She is okay now. The abdomen dressing is dry and intact there is drainage from both the Colton- Ku on both sides of the abdomen. Cardiopulmonary examination is unremarkable except that the breath sounds are reduced on the bases partly because of obesity and also due to incisional pain. She is getting IV narcotics for pain management. Extremities are unremarkable. Assessment & Plan Diagnosis (1) History of colorectal cancer: Status: Acute (2) Incarcerated ventral hernia: Status: Acute Plan Advance diet to regular. Physical therapy to help patient mobilize. Continue with the Colton-Ku drainage. Patient to use incentive spirometer. Continue with the IV narcotics for pain management. Procedures Procedures Repair of large ventral incarcerated hernias with component separation reconstruction of the abdominal wall and implantation of phasic ST patch. On 11/16/2024
--- NOTE | 2024-11-17 12:00 | PC.NURSE ---
Educated patient on use of IS every 2 hours. Patient able to return demonstration correctly.
[2024-11-17] MEDS: FLUTICASONE NAS SPRAY 0.05% 16 GM BTL 1 SPRAY NASAL (12:05)
[2024-11-17] MEDS: RINGERS LACTATED 1000 ML 1,000 ML 40 ML IV (15:10)
--- NOTE | 2024-11-17 15:23 | PC.SS ---
Rounding: Per Dr. Zhong Advance diet to regular. Physical therapy to help patient mobilize. Continue with the Colton-Ku drainage. Patient to use incentive spirometer. Continue with the IV narcotics for pain management.
[2024-11-17] MEDS: ATORVASTATIN CALCIUM 20 MG TABLET 40 MG PO (20:36)
[2024-11-18] VITALS (9 sets, daily range): BP systolic 121–146; BP diastolic 68–88; PULSE 75–113; RESP 17–21; TEMP 36–36.6; O2SAT 94–98
[2024-11-18] MEDS: HYDROmorphone INJ 2 MG/ML VIAL 1 MG IVP ×3 (03:11→18:55)
[2024-11-18] MEDS: MULTIVITAMINS TABLET 1 TAB PO (08:51)
[2024-11-18] MEDS: VITAMIN B COMPLEX TABLET 1 TAB PO (08:51)
[2024-11-18] MEDS: CHOLECALCIFEROL (Vitamin D3) 400 IU TABLET PO (08:51)
[2024-11-18] MEDS: Lisinopril 2.5 MG TABLET 10 MG PO (08:51)
[2024-11-18] MEDS: CALCIUM CARBONATE 600 MG TABLET PO (08:51)
[2024-11-18] MEDS: metFORMIN 500 MG TABLET 1000 MG PO ×2 (08:52→18:03)
[2024-11-18] MEDS: lorataDINE 10 MG TABLET PO (08:53)
[2024-11-18] MEDS: PANTOPRAZOLE 40 MG TABLET PO (08:53)
[2024-11-18] MEDS: INSULIN NPH 1 UNIT/0.01 ML (PER UNIT) 70 UNIT SC ×2 (08:53→21:50)
[2024-11-18] MEDS: FLUTICASONE NAS SPRAY 0.05% 16 GM BTL 1 SPRAY NASAL (09:06)
[2024-11-18] MEDS: ONDANSETRON INJ 2 MG/ML INJ 2 ML 4 MG IVP ×2 (09:40→18:56)
[2024-11-18] MEDS: INSULIN HUM REGULAR 1 UNIT/0.01 ML (PER UNIT) SC (12:07)
--- NOTE | 2024-11-18 12:44 | ESPR_ITS ---
Documentation for date of: 11/18/24 Subjective Subjective Brief History: This is a 59-year-old female she has a history of colon cancer resection metastatic to the liver she has been getting chemotherapy. She developed large ventral hernias that required repair. This was carried out on 11/16/2024. She has drains in place Colton-Ku is draining 50 cc on each side. She is tolerating clear liquid diet that will be advanced to regular diet she is not getting out of the bed physical therapy is here to help her get out of bed. The Sánchez catheter was removed.. She is obese and she has sleep apnea so she has to sleep upright otherwise if there are no other issues. Progress note 11 18 24: Postop day 2 status post complex large ventral hernia repair with implantation of a patch. Patient reports that she is still very weak and not able to get out of the bed and is struggling to go to the bedside commode. She says that she becomes short of breath doing all that. She is was taught how to use the incentive spirometer and she did not know that she could get the nurses help to ambulate. The ambulation requirements are discussed with the patient and the nursing staff so that she can get help to ambulate. Once she begins to ambulate and then we can consider discharge planning. She is also not passing any gas or having bowel movement and therefore I would order some laxatives like lactulose to see if we can get her going. Otherwise if there are no new findings or complaints. All the requirements and encouragement was discussed with the family members and they would help her ambulate as well as remind her to use incentive spirometer. Exam Vital Signs Temp Pulse Resp BP Pulse Ox O2 Del Method O2 Flow Rate 96.8 F 104 H 19 142/82 H 96 Nasal Cannula 1 11/18/24 12:11/18/24 12:00 11/18/24 12:00 11/18/24 12:00 11/18/24 12:00 11/18/24 12:11/18/24 12:00 Narrative Exam Patient is in the bed appears to be more alert than yesterday and she is able to carry on a long conversation without getting out winded. The abdominal dressing is dry and intact the Colton-Ku drains have been draining less amount of fluid than yesterday to the tune of about 15 cc per shift. She will require Colton-Ku in place for a period of next few days. She is getting the pain medications and pain is under reasonable control. The lungs are clear however reduced breath sounds on the bases because she is not very active as well as she is lying down and she is obese. She needs to get out of the bed and ambulate more. Extremities are unremarkable. There are no other pertinent remarkable findings. Assessment & Plan Diagnosis (1) Incarcerated ventral hernia: Status: Acute (2) History of colorectal cancer: Status: Acute Plan Advance diet to regular use the incentive spirometer liberally try to get help to get out of bed and ambulate with the nursing staff as well as physical th erapy staff. Lactulose as laxative to see what happens with that once she started having bowel movements and is ambulating then we will consider discharge planning. Procedures Procedure Date 11/16/24 Procedures Repair of large ventral incarcerated hernias with component separation reconstruction of the abdominal wall and implantation of phasic ST patch. On 11/16/2024
[2024-11-18] MEDS: LACTULOSE SYRUP 20 GM/30 ML UDC PO (12:46)
--- NOTE | 2024-11-18 16:35 | PC.SS ---
SS met with patient at bedside. Patient confirmed demographic information. She stated she lives with her spouse Didier Medina [phone], who patient identified as her primary medical surrogate decision maker. Patient stated she is independent with ADL completion and was independent with ambulation prior to being hospitalized. Patient expressed concern with ambulation and feeling weak. Patient is requesting SNF placement in the [place] area. Pharmacy: [facility]. PCP: Donald Isaacs. Discharge plan: SNF in [place] Transportation: Assistance with transportation possibly needed.
[2024-11-18] MEDS: ATORVASTATIN CALCIUM 20 MG TABLET 40 MG PO (21:50)
[2024-11-18] MEDS: glipiZIDE 5 MG TABLET 20 MG PO (21:50)
[2024-11-19] VITALS (10 sets, daily range): BP systolic 134–160; BP diastolic 73–93; PULSE 100–120; RESP 15–20; TEMP 36–36.9; O2SAT 92–98
[2024-11-19] MEDS: ONDANSETRON INJ 2 MG/ML INJ 2 ML 4 MG IVP ×3 (01:24→20:05)
[2024-11-19] MEDS: HYDROmorphone INJ 2 MG/ML VIAL 1 MG IVP ×3 (01:27→20:09)
[2024-11-19] MEDS: MULTIVITAMINS TABLET 1 TAB PO (08:30)
[2024-11-19] MEDS: glipiZIDE 5 MG TABLET 20 MG PO (08:30)
[2024-11-19] MEDS: Lisinopril 2.5 MG TABLET 10 MG PO (08:30)
[2024-11-19] MEDS: PANTOPRAZOLE 40 MG TABLET PO (08:31)
[2024-11-19] MEDS: lorataDINE 10 MG TABLET PO (08:31)
[2024-11-19] MEDS: metFORMIN 500 MG TABLET 1000 MG PO (08:31)
[2024-11-19] MEDS: INSULIN NPH 1 UNIT/0.01 ML (PER UNIT) 70 UNIT SC (08:31)
[2024-11-19] MEDS: VITAMIN B COMPLEX TABLET 1 TAB PO (08:31)
[2024-11-19] MEDS: INSULIN HUM REGULAR 1 UNIT/0.01 ML (PER UNIT) SC ×2 (08:32→11:33)
[2024-11-19] MEDS: DOCUSATE SOD 100 MG CAPSULE PO (08:38)
[2024-11-19] MEDS: FLUTICASONE NAS SPRAY 0.05% 16 GM BTL 1 SPRAY NASAL (11:17)
--- NOTE | 2024-11-19 12:34 | XR_ITS ---
Examination: AP chest single view Technique one AP portable semiupright chest single view Date and time: November 19, 2024 12:46 PM Comparison October 08, 2023 INDICATIONS: Shortness of breath chest pain FINDINGS: Again noted small area of opacity in the right upper lobe Note internal jugular Port-A-Cath tip right atrium Subsegmental atelectasis of the lung bases IMPRESSION: Stable parenchymal disease right upper lobe, please see the CT chest report July 06, 2024
[2024-11-19 14:39] LABS: Basophils # (Auto) 0.1 Thou/mm3 (0.0-0.2); Basophils % (Auto) 0 % (0-2.5); Eosinophils # (Auto) 0.2 Thou/mm3 (0.0-0.5); Eosinophils % (Auto) 1 % (0-10); Hemoglobin 12.1 g/dL (12.0-16.0); Immature Granulocytes % (Auto) 0 % (0-0); Immature Granulocytes Auto 0.07 Thou/mm3 (0.00-0.00); Lymphocytes % (Auto) 17 % (10-50); Mean Corpuscular HGB Conc 33.6 g/dl (31.0-37.0); Mean Corpuscular Hemoglobin 28.9 pg (25.0-35.0); Mean Corpuscular Volume 86 fL (80-100); Monocytes # (Auto) 1.5 Thou/mm3 (0.0-0.8); Monocytes % (Auto) 8 % (0-12); Neutrophils % (Auto) 73 % (37-80); Nucleated Red Blood Cell % 0 /100 WBC (0); Platelet Count 336 Thou/mm3 (140-440); RDW Standard Deviation 39.7 fL (36.4-46.3); Red Blood Count 4.19 Miln/mm3 (4.00-5.20); White Blood Count 17.7 Thou/mm3 (3.6-11.0)
[2024-11-19 14:59] LABS: Alanine Aminotransferase 34 U/L (10-49); Albumin, Serum 4.3 gm/dL (3.5-5.0); Albumin/Globulin Ratio 1.5 (1.2-2.2); Alkaline Phosphatase 120 U/L (46-116); Anion Gap 14 (7-16); Aspartate Amino Transferase 32 U/L (0-34); BUN/Creatinine Ratio 23 Ratio (12-20); Bilirubin,Total 0.6 mg/dL (0.3-1.2); Blood Urea Nitrogen 16 mg/dL (9-23); Calcium 9.3 mg/dL (8.3-10.6); Calcium (Corrected) 9.3 mg/dL (8.5-10.1); Carbon Dioxide 27.1 mMol/L (20.0-31.0); Chloride 98 mMol/L (98-107); Creatinine (Component) 0.7 mg/dL (0.6-1.3); Estimated Creatinine Clearance 85.8 mL/min (>60); Globulin 2.9 gm/dL (2.3-3.5); Glucose 132 mg/dL (74-106); Magnesium 1.4 mg/dL (1.6-2.6); Osmolality,Calculated 280 (275-295); Sodium 139 mMol/L (136-145); Total Protein 7.2 gm/dL (5.7-8.2); eGFR > 60 See Note
--- NOTE | 2024-11-19 15:20 | XR_ITS ---
Examination: Abdomen AP single view Technique: AP portable supine abdomen, single view Exam date and time: November 19, 2024 1532 hours INDICATIONS: Diagnosis malignant neoplasm colon FINDINGS: Air distended small bowel loops in the left abdomen Moderate air and stool throughout the colon No free air Tubing overlies the central right abdomen IMPRESSION: Findings most consistent with left abdomen small bowel ileus
[2024-11-19] MEDS: RINGERS LACTATED 1000 ML 1,000 ML 125 ML IV ×2 (15:56→23:31)
[2024-11-19] MEDS: Magnesium Sulfate 2 GM Ivpb 2 GM/50 ML BAG IV ×2 (16:15→20:18)
--- NOTE | 2024-11-19 17:12 | PC.SS ---
Patient requesting SNF placement in [place]. However, PT is recommending home health. SS to follow up with patient.
[2024-11-19 18:32] LABS: Collection Type, Urine Voided
[2024-11-19 18:39] LABS: Bilirubin,Urine Negative (Negative); Blood,Urine Trace (Negative); Clarity,Urine Clear (Clear/Hazy); Color,Urine Yellow (Lt Yel-Yel); Glucose, Urine Negative (Negative); Ketones,Urine 1+ (Negative); Leukocyte Esterase,Urine Positive (Negative); Nitrite,Urine Negative (Negative); PH,Urine 5.5 (5.0-7.0); Protein,Urine 1+ (Neg - Trace); RBC,Urine 11 /hpf (0-3); Specific Gravity,Urine 1.026 (1.001-1.035); Squamous Epithelial Cell,Urine 1 /hpf (0-5); Urobilinogen,Urine Negative mg/dL (0.0-1.0); WBC,Urine 12 /hpf (0-5)
[2024-11-19 18:41] LABS: Culture Indicated,Urine Yes
--- NOTE | 2024-11-19 20:26 | PD.SURPROG ---
Documentation for date of: 11/19/24 Subjective Subjective Brief History: This is a 59-year-old female she has a history of colon cancer resection metastatic to the liver she has been getting chemotherapy. She developed large ventral hernias that required repair. This was carried out on 11/16/2024. She has drains in place Colton-Ku is draining 50 cc on each side. She is tolerating clear liquid diet that will be advanced to regular diet she is not getting out of the bed physical therapy is here to help her get out of bed. The Sánchez catheter was removed.. She is obese and she has sleep apnea so she has to sleep upright otherwise if there are no other issues. Progress note 11 18 24: Postop day 2 status post complex large ventral hernia repair with implantation of a patch. Patient reports that she is still very weak and not able to get out of the bed and is struggling to go to the bedside commode. She says that she becomes short of breath doing all that. She is was taught how to use the incentive spirometer and she did not know that she could get the nurses help to ambulate. The ambulation requirements are discussed with the patient and the nursing staff so that she can get help to ambulate. Once she begins to ambulate and then we can consider discharge planning. She is also not passing any gas or having bowel movement and therefore I would order some laxatives like lactulose to see if we can get her going. Otherwise if there are no new findings or complaints. All the requirements and encouragement was discussed with the family members and they would help her ambulate as well as remind her to use incentive spirometer. Progress note dated November 19, 2024. Postop day 3 status post complex large ventral hernia repair with implantation of a patch patient feels a little bit better she has passed small amount of flatus but her abdomen is distended. WBC count was obtained that was 18,000 she has no fever chest x-ray was done reportedly there was no pneumonia however I can see that she has atelectasis on the left base. The left hemidiaphragm appears to be somewhat elevated. So I obtained the abdominal series and shows she has an ileus. Checking chemistry shows magnesium was low so therefore replacing magnesium. I will keep her n.p.o. And she will require nasogastric tube to decompress the small bowel. She is getting out of bed and going to the bathroom to use the urinal. She had no actual bowel movement. The Colton-Ku drains are draining 15 to 20 cc a day. There are no complaints about the abdominal pain she has minimal pain. Being managed by the pain medication she is getting. Because of the atelectasis possible pneumonia and ileus and elevated white cell count I am going to start her on antibiotics on an empiric manner. Exam Vital Signs Temp Pulse Resp BP Pulse Ox O2 Del Method O2 Flow Rate 97.5 F 116 H 18 138/76 H 98 Nasal Cannula 2 11/19/24 20:00 11/19/24 20:00 11/19/24 20:00 11/19/24 20:00 11/19/24 20:00 11/19/24 20:11/19/24 20:00 Narrative Exam Abdomen is somewhat distended bowel tones are hypoactive. Wound appears to be normal. Colton-Ku drains are in place. Breath sounds are reduced on both the sides. There is no evidence of DVT. Patient was placed on Flowtron's. Otherwise there are no remarkable findings. Assessment & Plan Diagnosis (1) Ileus following gastrointestinal surgery: Status: Acute (2) Atelectasis of left lung: Status: Acute (3) Incarcerated ventral hernia: Status: Acute (4) History of colorectal cancer: Status: Acute Plan Will keep the patient n.p.o. start nasogastric tube decompression of the small bowel start the magnesium because of hypomagnesemia we will start IV antibiotics. Continue with the IV pain medication. Procedures Procedure Date 11/16/24 Procedures Repair of large ventral incarcerated hernias with component separation reconstruction of the abdominal wall and implantation of phasic ST patch. On 11/16/2024
--- NOTE | 2024-11-19 20:59 | XR_ITS ---
Examination: AP chest single view TECHNIQUE: AP portable upright chest single view Post orogastric tube placement Date and time: November 19, 20242105 hours Comparison November 19, 2024 INDICATIONS: Post orogastric tube placement FINDINGS: Orogastric tube tip in stomach satisfactory position Atelectasis left base Left internal jugular Port-A-Cath tip right atrium No significant cardiac enlargement IMPRESSION: Orogastric tube tip in the stomach satisfactory position
[2024-11-19] MEDS: CEFOXITIN 2 GM in SODIUM CHLORIDE 0.9% (Popper) 50 ML IV (22:21)
[2024-11-20] VITALS (9 sets, daily range): BP systolic 125–140; BP diastolic 73–81; PULSE 101–107; RESP 17–18; TEMP 36.1–36.4; O2SAT 95–99
--- NOTE | 2024-11-20 07:59 | PD.SURPROG ---
Documentation for date of: 11/20/24 Subjective Subjective Brief History: This is a 59-year-old female she has a history of colon cancer resection metastatic to the liver she has been getting chemotherapy. She developed large ventral hernias that required repair. This was carried out on 11/16/2024. She has drains in place Colton-Ku is draining 50 cc on each side. She is tolerating clear liquid diet that will be advanced to regular diet she is not getting out of the bed physical therapy is here to help her get out of bed. The Sánchez catheter was removed.. She is obese and she has sleep apnea so she has to sleep upright otherwise if there are no other issues. Progress note 11 18 24: Postop day 2 status post complex large ventral hernia repair with implantation of a patch. Patient reports that she is still very weak and not able to get out of the bed and is struggling to go to the bedside commode. She says that she becomes short of breath doing all that. She is was taught how to use the incentive spirometer and she did not know that she could get the nurses help to ambulate. The ambulation requirements are discussed with the patient and the nursing staff so that she can get help to ambulate. Once she begins to ambulate and then we can consider discharge planning. She is also not passing any gas or having bowel movement and therefore I would order some laxatives like lactulose to see if we can get her going. Otherwise if there are no new findings or complaints. All the requirements and encouragement was discussed with the family members and they would help her ambulate as well as remind her to use incentive spirometer. Progress note dated November 19, 2024. Postop day 3 status post complex large ventral hernia repair with implantation of a patch patient feels a little bit better she has passed small amount of flatus but her abdomen is distended. WBC count was obtained that was 18,000 she has no fever chest x-ray was done reportedly there was no pneumonia however I can see that she has atelectasis on the left base. The left hemidiaphragm appears to be somewhat elevated. So I obtained the abdominal series and shows she has an ileus. Checking chemistry shows magnesium was low so therefore replacing magnesium. I will keep her n.p.o. And she will require nasogastric tube to decompress the small bowel. She is getting out of bed and going to the bathroom to use the urinal. She had no actual bowel movement. The Colton-Ku drains are draining 15 to 20 cc a day. There are no complaints about the abdominal pain she has minimal pain. Being managed by the pain medication she is getting. Because of the atelectasis possible pneumonia and ileus and elevated white cell count I am going to start her on antibiotics on an empiric manner. Progreass note Dated 11/20/2024: The patient his condition is more or less same nasogastric tube was inserted yesterday and is draining moderate amount of liquid. This includes the undigested previously taken any food. The wound dressing was changed and shows there is no collection of fluid UNA drains are in place there is no drainage from the wound there is no infection. The white cell count came down to 12,000 and is improving. The Sánchez catheter was very big as seen on the CT scan that was done and she will require Sánchez catheter. Magnesium came up to 1.6 and I will give her 2 more grams of magnesium. The CT scan did not show that there is any evidence of recurrence of the hernia. The upper abdomen mainly the patient appears to be swollen but that is because of the large liver she has underneath. All in all patient condition is more or less similar to what it was yesterday. Once the ileus is cleared out then we can clamp the NG tube and then we will do oral intake restart. Exam Vital Signs Temp Pulse Resp BP Pulse Ox O2 Del Method O2 Flow Rate 97.3 F 103 H 17 140/78 H 97 Nasal Cannula 2 11/20/24 04:00 11/20/24 04:00 11/20/24 04:00 11/20/24 04:00 11/20/24 04:00 11/20/24 04:00 11/20/24 04:00 Assessment & Plan Diagnosis (1) Ileus following gastrointestinal surgery: Status: Acute (2) History of colorectal cancer: Status: Acute (3) Incarcerated ventral hernia: Status: Acute Plan Replace magnesium 2 more grams IV continue with nasogastric tube decompression care of Sánchez catheter because the patient has a large bladder she is not able to void. Otherwise continue with the pain management. Once the ileus is improved then we can reinstitute the ambulation and walking in the hallways. Procedures Procedure Date 11/16/24 Procedures Repair of large ventral incarcerated hernias with component separation reconstruction of the abdominal wall and implantation of phasic ST patch. On 11/16/2024
--- NOTE | 2024-11-20 08:01 | XR_ITS ---
Examination: CT abdomen with intravenous contrast CT pelvis with intravenous contrast 2-D coronal reconstructions 2-D sagittal reconstructions Date and time of exam:November 20, 2024 0911 hours Comparison July 06, 2024 INDICATIONS: Status post surgery, hernia repairs, abdominal distention beginning 4 days ago. Diagnosis malignant neoplasm sigmoid colon 2022 CTDI: vol (mGy) 9.74 DLP: (mGycm) 569 Technique: Multiple axial sections of the abdomen and pelvis have been obtained. 64 slice high-resolution scanner used. 3 mm axial sections have been obtained, post intravenous injection 60 cc [id number] 2-D sagittal, coronal reconstructions obtained. Low dose protocols were performed. One or more of the following dose reduction techniques were used; automated exposure control, adjustment of the mA and/or KV according to patient size, use of iterative reconstruction technique. Findings: Subsegmental atelectasis in the lower lung zones Posterior right lobe liver lesion 3.9 cm Absent gallbladder Spleen not enlarged Orogastric tube tip in the stomach Aorta normal size No hydronephrosis Multiple fluid distended small bowel loops Normal appendix No diverticulitis Postoperative changes in the anterior abdominal wall Urinary bladder intact Small fluid collection in the anterior abdominal wall subcutaneous fatty tissue, axial image 191, sagittal image 1:15 measuring 27 x 34 mm Urinary bladder intact, air in the urinary bladder Osseous structures intact IMPRESSION: Multiple fluid distended small bowel loops consistent with small bowel obstruction, consider Gastrografin small bowel series follow-up Posterior right lobe liver lesion 3.9 cm
[2024-11-20] MEDS: FLUTICASONE NAS SPRAY 0.05% 16 GM BTL 1 SPRAY NASAL (08:21)
[2024-11-20] MEDS: Magnesium Sulfate 2 GM Ivpb 2 GM/50 ML BAG IV ×2 (08:21→14:48)
[2024-11-20] MEDS: RINGERS LACTATED 1000 ML 1,000 ML 125 ML IV ×2 (08:22→21:06)
[2024-11-20] MEDS: Lisinopril 2.5 MG TABLET 10 MG PO (08:22)
[2024-11-20] MEDS: VITAMIN B COMPLEX TABLET 1 TAB PO (08:23)
[2024-11-20] MEDS: lorataDINE 10 MG TABLET PO (08:23)
[2024-11-20] MEDS: CALCIUM CARBONATE 600 MG TABLET PO (08:23)
[2024-11-20] MEDS: CHOLECALCIFEROL (Vitamin D3) 400 IU TABLET PO (08:24)
[2024-11-20] MEDS: PANTOPRAZOLE 40 MG TABLET PO (08:24)
[2024-11-20] MEDS: MULTIVITAMINS TABLET 1 TAB PO (08:24)
[2024-11-20 10:31] LABS: Basophils # (Auto) 0.1 Thou/mm3 (0.0-0.2); Basophils % (Auto) 0 % (0-2.5); Eosinophils # (Auto) 0.3 Thou/mm3 (0.0-0.5); Eosinophils % (Auto) 3 % (0-10); Hematocrit 34.7 % (36.0-46.0); Hemoglobin 11.4 g/dL (12.0-16.0); Immature Granulocytes % (Auto) 0 % (0-0); Immature Granulocytes Auto 0.05 Thou/mm3 (0.00-0.00); Lymphocytes % (Auto) 24 % (10-50); Mean Corpuscular HGB Conc 32.9 g/dl (31.0-37.0); Mean Corpuscular Hemoglobin 28.2 pg (25.0-35.0); Mean Corpuscular Volume 86 fL (80-100); Monocytes % (Auto) 8 % (0-12); Neutrophils # (Auto) 8.4 Thou/mm3 (1.8-7.7); Neutrophils % (Auto) 65 % (37-80); Nucleated Red Blood Cell % 0 /100 WBC (0); Platelet Count 308 Thou/mm3 (140-440); RDW Standard Deviation 39.6 fL (36.4-46.3); Red Blood Count 4.04 Miln/mm3 (4.00-5.20); White Blood Count 12.9 Thou/mm3 (3.6-11.0)
[2024-11-20 11:00] LABS: Alanine Aminotransferase 29 U/L (10-49); Albumin/Globulin Ratio 1.5 (1.2-2.2); Alkaline Phosphatase 114 U/L (46-116); Anion Gap 13 (7-16); Aspartate Amino Transferase 32 U/L (0-34); BUN/Creatinine Ratio 15 Ratio (12-20); Bilirubin,Total 0.8 mg/dL (0.3-1.2); Blood Urea Nitrogen 9 mg/dL (9-23); Calcium 8.6 mg/dL (8.3-10.6); Calcium (Corrected) 8.6 mg/dL (8.5-10.1); Carbon Dioxide 25.4 mMol/L (20.0-31.0); Chloride 100 mMol/L (98-107); Creatinine (Component) 0.6 mg/dL (0.6-1.3); Estimated Creatinine Clearance 100.1 mL/min (>60); Globulin 2.6 gm/dL (2.3-3.5); Glucose 157 mg/dL (74-106); Magnesium 1.7 mg/dL (1.6-2.6); Osmolality,Calculated 277 (275-295); Potassium 4.1 mMol/L (3.4-5.1); Sodium 138 mMol/L (136-145); Total Protein 6.6 gm/dL (5.7-8.2); eGFR > 60 See Note
--- NOTE | 2024-11-20 11:28 | PC.SS ---
SS met with pt at to discuss DC planning. SS informed pt PT lorijatin stated she is well enough to DC home with HH and a FWW. Pt is in agreement with plan.
--- NOTE | 2024-11-20 14:32 | PC.SS ---
Rounding: Pt still has NG and FCT, continue pain management, once ileus is improved increase ambulation in hallways
[2024-11-21] VITALS (8 sets, daily range): BP systolic 129–152; BP diastolic 72–85; PULSE 96–106; RESP 16–20; TEMP 36.1–36.3; O2SAT 97–99; BMI 15.0
[2024-11-21] MEDS: RINGERS LACTATED 1000 ML 1,000 ML 125 ML IV ×2 (05:17→16:48)
[2024-11-21] MEDS: INSULIN HUM REGULAR 1 UNIT/0.01 ML (PER UNIT) SC ×2 (07:25→11:18)
--- NOTE | 2024-11-21 08:00 | PD.SURPROG ---
Documentation for date of: 11/21/24 Subjective Subjective Brief History: This is a 59-year-old female she has a history of colon cancer resection metastatic to the liver she has been getting chemotherapy. She developed large ventral hernias that required repair. This was carried out on 11/16/2024. She has drains in place Colton-Ku is draining 50 cc on each side. She is tolerating clear liquid diet that will be advanced to regular diet she is not getting out of the bed physical therapy is here to help her get out of bed. The Sánchez catheter was removed.. She is obese and she has sleep apnea so she has to sleep upright otherwise if there are no other issues. Progress note 11 18 24: Postop day 2 status post complex large ventral hernia repair with implantation of a patch. Patient reports that she is still very weak and not able to get out of the bed and is struggling to go to the bedside commode. She says that she becomes short of breath doing all that. She is was taught how to use the incentive spirometer and she did not know that she could get the nurses help to ambulate. The ambulation requirements are discussed with the patient and the nursing staff so that she can get help to ambulate. Once she begins to ambulate and then we can consider discharge planning. She is also not passing any gas or having bowel movement and therefore I would order some laxatives like lactulose to see if we can get her going. Otherwise if there are no new findings or complaints. All the requirements and encouragement was discussed with the family members and they would help her ambulate as well as remind her to use incentive spirometer. Progress note dated November 19, 2024. Postop day 3 status post complex large ventral hernia repair with implantation of a patch patient feels a little bit better she has passed small amount of flatus but her abdomen is distended. WBC count was obtained that was 18,000 she has no fever chest x-ray was done reportedly there was no pneumonia however I can see that she has atelectasis on the left base. The left hemidiaphragm appears to be somewhat elevated. So I obtained the abdominal series and shows she has an ileus. Checking chemistry shows magnesium was low so therefore replacing magnesium. I will keep her n.p.o. And she will require nasogastric tube to decompress the small bowel. She is getting out of bed and going to the bathroom to use the urinal. She had no actual bowel movement. The Colton-Ku drains are draining 15 to 20 cc a day. There are no complaints about the abdominal pain she has minimal pain. Being managed by the pain medication she is getting. Because of the atelectasis possible pneumonia and ileus and elevated white cell count I am going to start her on antibiotics on an empiric manner. Progreass note Dated 11/20/2024: The patient his condition is more or less same nasogastric tube was inserted yesterday and is draining moderate amount of liquid. This includes the undigested previously taken any food. The wound dressing was changed and shows there is no collection of fluid UNA drains are in place there is no drainage from the wound there is no infection. The white cell count came down to 12,000 and is improving. The Sánchez catheter was very big as seen on the CT scan that was done and she will require Sánchez catheter. Magnesium came up to 1.6 and I will give her 2 more grams of magnesium. The CT scan did not show that there is any evidence of recurrence of the hernia. The upper abdomen mainly the patient appears to be swollen but that is because of the large liver she has underneath. All in all patient condition is more or less similar to what it was yesterday. Once the ileus is cleared out then we can clamp the NG tube and then we will do oral intake restart. Progress note dated 11/21/2024: The NG tube is in place and is not draining much is about 120 cc overnight. She had 2 bowel movements. Will check a chemistry again today. She continue to need the Sánchez catheter there was fallen once a Sánchez catheter went in she had over 800 cc of urine come out. So she does have bladder emptying issues. That may be due to the narcotic medications she is getting and she is not mobile. Currently she is using the incentive spirometer. She needs to get out of the bed and ambulate in the hallways. Will clamp the NG tube and try liquid diet. She has no complaints of abdominal pain. The Colton-Ku drains are in place and they are draining small to moderate amount of serosanguineous fluid. There are no new complaints. 11/21/2024 afternoon note. Nasogastric tube was removed as the residual was less than 100 and she is tolerating clear liquid diet she is ambulating in the hallway with with assistance from physical therapy and she had a couple of bowel movements. She still feels nausea and she is distended. Patient is encouraged to ambulate more and if she ambulates more and be self independent then she can be discharged home tomorrow. Exam Vital Signs Temp Pulse Resp BP Pulse Ox O2 Del Method O2 Flow Rate 97.0 F 101 H 16 143/77 H 98 Nasal Cannula 2 11/21/24 04:00 11/21/24 06:34 11/21/24 06:34 11/21/24 04:00 11/21/24 06:34 11/21/24 04:00 11/21/24 06:34 Narrative Exam Cardiopulmonary examination is normal she appears to be stronger and more awake. The she is not getting short of breath on minimal activity. The dressing is dry and intact there is no evidence of infection Colton-Ku drains are in place abdomen is somewhat distended bowel tones are still hypoactive. Extremities are unremarkable. Assessment & Plan Diagnosis (1) Ileus following gastrointestinal surgery: Status: Acute (2) Atelectasis of left lung: Status: Acute (3) History of colorectal cancer: Status: Acute (4) Incarcerated ventral hernia: Status: Acute (5) Urinary retention with incomplete bladder emptying: Status: Acute Plan Continue with the liquid diet and Colton-Ku and ambulate more in the hallways will consider discharge planning for tomorrow if patient is more self independent. She may require assistance at home and manager social responsibility were consulted. Procedures Procedure Date 11/16/24 Procedures Repair of large ventral incarcerated hernias with component separation reconstruction of the abdominal wall and implantation of phasic ST patch. On 11/16/2024
--- NOTE | 2024-11-21 08:37 | PC.SS ---
SS follow up note; SS submitted FWW referral through [facility].
[2024-11-21] MEDS: MULTIVITAMINS TABLET 1 TAB PO (08:40)
[2024-11-21] MEDS: VITAMIN B COMPLEX TABLET 1 TAB PO (08:40)
[2024-11-21] MEDS: Lisinopril 2.5 MG TABLET 10 MG PO (08:40)
[2024-11-21] MEDS: PANTOPRAZOLE 40 MG TABLET PO (08:40)
[2024-11-21] MEDS: lorataDINE 10 MG TABLET PO (08:41)
--- NOTE | 2024-11-21 09:34 | PC.SS ---
SS follow up note; [facility] will deliver FWW at bedside. The NG tube is in place and is not draining much, patient will discharge home with HH when medically cleared.
[2024-11-21] MEDS: FLUTICASONE NAS SPRAY 0.05% 16 GM BTL 1 SPRAY NASAL (10:11)
--- NOTE | 2024-11-21 13:51 | PC.PT ---
Patient will be D/C from PT due to patient is xI with transfers and ambulation using no AD. Patient is safe to ambulate to the bathroom and in the halls with no AD and with 1 staff to assist with line management including her IVs and NG tube. RN made aware.
[2024-11-21] MEDS: glipiZIDE 5 MG TABLET 20 MG PO (16:31)
[2024-11-21] MEDS: ATORVASTATIN CALCIUM 20 MG TABLET 40 MG PO (20:32)
[2024-11-22] VITALS (10 sets, daily range): BP systolic 149–164; BP diastolic 76–87; PULSE 85–101; RESP 16–18; TEMP 36.1–36.3; O2SAT 92–97
[2024-11-22] MEDS: RINGERS LACTATED 1000 ML 1,000 ML 125 ML IV ×3 (00:40→17:08)
[2024-11-22] MEDS: glipiZIDE 5 MG TABLET 20 MG PO ×2 (07:33→17:24)
[2024-11-22] MEDS: INSULIN HUM REGULAR 1 UNIT/0.01 ML (PER UNIT) SC ×2 (07:34→11:21)
[2024-11-22] MEDS: metFORMIN 500 MG TABLET 1000 MG PO ×2 (07:34→17:24)
[2024-11-22] MEDS: FLUTICASONE NAS SPRAY 0.05% 16 GM BTL 1 SPRAY NASAL (09:08)
[2024-11-22] MEDS: CALCIUM CARBONATE 600 MG TABLET PO (09:09)
[2024-11-22] MEDS: CHOLECALCIFEROL (Vitamin D3) 400 IU TABLET PO (09:09)
[2024-11-22] MEDS: lorataDINE 10 MG TABLET PO (09:09)
[2024-11-22] MEDS: Lisinopril 2.5 MG TABLET 10 MG PO (09:09)
[2024-11-22] MEDS: MULTIVITAMINS TABLET 1 TAB PO (09:09)
[2024-11-22] MEDS: VITAMIN B COMPLEX TABLET 1 TAB PO (09:09)
[2024-11-22] MEDS: PANTOPRAZOLE 40 MG TABLET PO (09:09)
[2024-11-22] MEDS: INSULIN NPH 1 UNIT/0.01 ML (PER UNIT) 70 UNIT SC (09:10)
--- NOTE | 2024-11-22 10:19 | PC.SS ---
SS follow up note; Per Dr Zhong's notes, patient will possibly discharge back home today.
--- NOTE | 2024-11-22 13:28 | PD.SURPROG ---
Documentation for date of: 11/22/24 Subjective Subjective Brief History: This is a 59-year-old female she has a history of colon cancer resection metastatic to the liver she has been getting chemotherapy. She developed large ventral hernias that required repair. This was carried out on 11/16/2024. She has drains in place Colton-Ku is draining 50 cc on each side. She is tolerating clear liquid diet that will be advanced to regular diet she is not getting out of the bed physical therapy is here to help her get out of bed. The Sánchez catheter was removed.. She is obese and she has sleep apnea so she has to sleep upright otherwise if there are no other issues. Progress note 11 18 24: Postop day 2 status post complex large ventral hernia repair with implantation of a patch. Patient reports that she is still very weak and not able to get out of the bed and is struggling to go to the bedside commode. She says that she becomes short of breath doing all that. She is was taught how to use the incentive spirometer and she did not know that she could get the nurses help to ambulate. The ambulation requirements are discussed with the patient and the nursing staff so that she can get help to ambulate. Once she begins to ambulate and then we can consider discharge planning. She is also not passing any gas or having bowel movement and therefore I would order some laxatives like lactulose to see if we can get her going. Otherwise if there are no new findings or complaints. All the requirements and encouragement was discussed with the family members and they would help her ambulate as well as remind her to use incentive spirometer. Progress note dated November 19, 2024. Postop day 3 status post complex large ventral hernia repair with implantation of a patch patient feels a little bit better she has passed small amount of flatus but her abdomen is distended. WBC count was obtained that was 18,000 she has no fever chest x-ray was done reportedly there was no pneumonia however I can see that she has atelectasis on the left base. The left hemidiaphragm appears to be somewhat elevated. So I obtained the abdominal series and shows she has an ileus. Checking chemistry shows magnesium was low so therefore replacing magnesium. I will keep her n.p.o. And she will require nasogastric tube to decompress the small bowel. She is getting out of bed and going to the bathroom to use the urinal. She had no actual bowel movement. The Colton-Ku drains are draining 15 to 20 cc a day. There are no complaints about the abdominal pain she has minimal pain. Being managed by the pain medication she is getting. Because of the atelectasis possible pneumonia and ileus and elevated white cell count I am going to start her on antibiotics on an empiric manner. Progreass note Dated 11/20/2024: The patient his condition is more or less same nasogastric tube was inserted yesterday and is draining moderate amount of liquid. This includes the undigested previously taken any food. The wound dressing was changed and shows there is no collection of fluid UNA drains are in place there is no drainage from the wound there is no infection. The white cell count came down to 12,000 and is improving. The Sánchez catheter was very big as seen on the CT scan that was done and she will require Sánchez catheter. Magnesium came up to 1.6 and I will give her 2 more grams of magnesium. The CT scan did not show that there is any evidence of recurrence of the hernia. The upper abdomen mainly the patient appears to be swollen but that is because of the large liver she has underneath. All in all patient condition is more or less similar to what it was yesterday. Once the ileus is cleared out then we can clamp the NG tube and then we will do oral intake restart. Progress note dated 11/21/2024: The NG tube is in place and is not draining much is about 120 cc overnight. She had 2 bowel movements. Will check a chemistry again today. She continue to need the Sánchez catheter there was fallen once a Sánchez catheter went in she had over 800 cc of urine come out. So she does have bladder emptying issues. That may be due to the narcotic medications she is getting and she is not mobile. Currently she is using the incentive spirometer. She needs to get out of the bed and ambulate in the hallways. Will clamp the NG tube and try liquid diet. She has no complaints of abdominal pain. The Colton-Ku drains are in place and they are draining small to moderate amount of serosanguineous fluid. There are no new complaints. 11/21/2024 afternoon note. Nasogastric tube was removed as the residual was less than 100 and she is tolerating clear liquid diet she is ambulating in the hallway with with assistance from physical therapy and she had a couple of bowel movements. She still feels nausea and she is distended. Patient is encouraged to ambulate more and if she ambulates more and be self independent then she can be discharged home tomorrow. 11/22/2024 the patient was started on liquid diet and it was advanced to full liquid diet. She is still having some pain and a not fully ambulating. The Colton-Ku drains are in place and is still draining fair amount of fluid. The abdomen is less distended and has hypoactive bowel tones. Patient has no other complaints. She says that she is getting out of the bed and trying to walk in the hallways with the help of the physical therapy. Exam Vital Signs Temp Pulse Resp BP Pulse Ox O2 Del Method O2 Flow Rate 97.3 F 85 18 156/76 H 95 Room Air 2 11/22/24 08:00 11/22/24 09:09 11/22/24 08:57 11/22/24 09:09 11/22/24 08:57 11/22/24 08:00 11/21/24 16:00 Narrative Exam The patient is fully awake and oriented appears to be in better spirits than yesterday cardiopulmonary examination is unremarkable abdomen is still somewhat distended. She is wearing the abdominal binder. The incision is healing normally Colton-Ku drains are in place. Bowel tones are hypoactive. Extremities are unremarkable. Assessment & Plan Diagnosis (1) Post-operative pain: Status: Acute (2) Ileus following gastrointestinal surgery: Status: Acute (3) Incarcerated ventral hernia: Status: Acute (4) Atelectasis of left lung: Status: Acute Plan Patient need to ambulate tomorrow. Continue using incentive spirometer and she needs wound care and pain medication. As and when the patient is ambulating more she can be discharged home for self-care. She will require home health care assistance. Her is disabled and unable to help himself in her. Procedures Procedure Date 11/16/24 Procedures Repair of large ventral incarcerated hernias with component separation reconstruction of the abdominal wall and implantation of phasic ST patch. On 11/16/2024
[2024-11-22] MEDS: ATORVASTATIN CALCIUM 20 MG TABLET 40 MG PO (20:19)
[2024-11-23] VITALS: BP 141/74; PULSE 91; RESP 18; TEMP 36.2; O2SAT 95
[2024-11-23] MEDS: RINGERS LACTATED 1000 ML 1,000 ML 125 ML IV ×2 (03:05→11:09)
[2024-11-23 04:00] VITALS: BP 142/79; PULSE 98; RESP 19; TEMP 36.1; O2SAT 95
--- NOTE | 2024-11-23 07:15 | PC.NURSE ---
Pt. up ambulating in hallway with IV pump. No s/s distress.
[2024-11-23] MEDS: glipiZIDE 5 MG TABLET 20 MG PO (07:30)
[2024-11-23] MEDS: metFORMIN 500 MG TABLET 1000 MG PO (07:30)
[2024-11-23 07:39] VITALS: BP 169/71; PULSE 88; RESP 17; TEMP 36.9; O2SAT 94
[2024-11-23 08:15] VITALS: BP 169/71; PULSE 88
[2024-11-23] MEDS: VITAMIN B COMPLEX TABLET 1 TAB PO (08:15)
[2024-11-23] MEDS: PANTOPRAZOLE 40 MG TABLET PO (08:15)
[2024-11-23] MEDS: MULTIVITAMINS TABLET 1 TAB PO (08:15)
[2024-11-23] MEDS: FLUTICASONE NAS SPRAY 0.05% 16 GM BTL 1 SPRAY NASAL (08:15)
[2024-11-23] MEDS: lorataDINE 10 MG TABLET PO (08:15)
[2024-11-23] MEDS: Lisinopril 2.5 MG TABLET 10 MG PO (08:15)
[2024-11-23] MEDS: INSULIN NPH 1 UNIT/0.01 ML (PER UNIT) 70 UNIT SC (08:16)
[2024-11-23 12:00] VITALS: BP 154/86; PULSE 96; RESP 18; TEMP 37.1; O2SAT 97
--- NOTE | 2024-11-23 12:18 | ESPR_ITS ---
Documentation for date of: 11/23/24 Subjective Subjective Brief History: This is a 59-year-old female she has a history of colon cancer resection metastatic to the liver she has been getting chemotherapy. She developed large ventral hernias that required repair. This was carried out on 11/16/2024. She has drains in place Colton-Ku is draining 50 cc on each side. She is tolerating clear liquid diet that will be advanced to regular diet she is not getting out of the bed physical therapy is here to help her get out of bed. The Sánchez catheter was removed.. She is obese and she has sleep apnea so she has to sleep upright otherwise if there are no other issues. Progress note 11 18 24: Postop day 2 status post complex large ventral hernia repair with implantation of a patch. Patient reports that she is still very weak and not able to get out of the bed and is struggling to go to the bedside commode. She says that she becomes short of breath doing all that. She is was taught how to use the incentive spirometer and she did not know that she could get the nurses help to ambulate. The ambulation requirements are discussed with the patient and the nursing staff so that she can get help to ambulate. Once she begins to ambulate and then we can consider discharge planning. She is also not passing any gas or having bowel movement and therefore I would order some laxatives like lactulose to see if we can get her going. Otherwise if there are no new findings or complaints. All the requirements and encouragement was discussed with the family members and they would help her ambulate as well as remind her to use incentive spirometer. Progress note dated November 19, 2024. Postop day 3 status post complex large ventral hernia repair with implantation of a patch patient feels a little bit better she has passed small amount of flatus but her abdomen is distended. WBC count was obtained that was 18,000 she has no fever chest x-ray was done reportedly there was no pneumonia however I can see that she has atelectasis on the left base. The left hemidiaphragm appears to be somewhat elevated. So I obtained the abdominal series and shows she has an ileus. Checking chemistry shows magnesium was low so therefore replacing magnesium. I will keep her n.p.o. And she will require nasogastric tube to decompress the small bowel. She is getting out of bed and going to the bathroom to use the urinal. She had no actual bowel movement. The Colton-Ku drains are draining 15 to 20 cc a day. There are no complaints about the abdominal pain she has minimal pain. Being managed by the pain medication she is getting. Because of the atelectasis possible pneumonia and ileus and elevated white cell count I am going to start her on antibiotics on an empiric manner. Progreass note Dated 11/20/2024: The patient his condition is more or less same nasogastric tube was inserted yesterday and is draining moderate amount of liquid. This includes the undigested previously taken any food. The wound dressing was changed and shows there is no collection of fluid UNA drains are in place there is no drainage from the wound there is no infection. The white cell count came down to 12,000 and is improving. The Sánchez catheter was very big as seen on the CT scan that was done and she will require Sánchez catheter. Magnesium came up to 1.6 and I will give her 2 more grams of magnesium. The CT scan did not show that there is any evidence of recurrence of the hernia. The upper abdomen mainly the patient appears to be swollen but that is because of the large liver she has underneath. All in all patient condition is more or less similar to what it was yesterday. Once the ileus is cleared out then we can clamp the NG tube and then we will do oral intake restart. Progress note dated 11/21/2024: The NG tube is in place and is not draining much is about 120 cc overnight. She had 2 bowel movements. Will check a chemistry again today. She continue to need the Sánchez catheter there was fallen once a Sánchez catheter went in she had over 800 cc of urine come out. So she does have bladder emptying issues. That may be due to the narcotic medications she is getting and she is not mobile. Currently she is using the incentive spirometer. She needs to get out of the bed and ambulate in the hallways. Will clamp the NG tube and try liquid diet. She has no complaints of abdominal pain. The Colton-Ku drains are in place and they are draining small to moderate amount of serosanguineous fluid. There are no new complaints. 11/21/2024 afternoon note. Nasogastric tube was removed as the residual was less than 100 and she is tolerating clear liquid diet she is ambulating in the hallway with with assistance from physical therapy and she had a couple of bowel movements. She still feels nausea and she is distended. Patient is encouraged to ambulate more and if she ambulates more and be self independent then she can be discharged home tomorrow. 11/22/2024 the patient was started on liquid diet and it was advanced to full liquid diet. She is still having some pain and a not fully ambulating. The Colton-Ku drains are in place and is still draining fair amount of fluid. The abdomen is less distended and has hypoactive bowel tones. Patient has no other complaints. She says that she is getting out of the bed and trying to walk in the hallways with the help of the physical therapy. 11/23/2024. Patient is ambulating well in the hallways and tolerating full liquid diet and having bowel movement she wants to go home. She will be managed at home with home health care nurse visiting she will also have Colton-Ku drainage at home. She will follow-up in my office in 1 week she will have oral pain medication at home. Exam Vital Signs Temp Pulse Resp BP Pulse Ox O2 Del Method O2 Flow Rate 98.5 F 88 17 169/71 H 94 L Room Air 2 11/23/24 07:39 11/23/24 08:15 11/23/24 07:39 11/23/24 08:15 11/23/24 07:39 11/23/24 04:00 11/21/24 16:00 Narrative Exam Again abdomen is soft and nontender it is less distended and she has bowel tones present she is tolerating liquid diet well incision is healing normally Colton- Ku drains are still in place draining small to moderate amount of liquid. There is no hyperemia or drainage. The cardiopulmonary examination is unremarkable. Extremities are unremarkable. Assessment & Plan Diagnosis (1) Incarcerated ventral hernia: Status: Acute (2) Ileus following gastrointestinal surgery: Status: Acute (3) History of colorectal cancer: Status: Acute (4) Atelectasis of left lung: Status: Acute (5) Urinary retention with incomplete bladder emptying: Status: Acute (6) Post-operative pain: Status: Acute Assessment Additional comments: Condition markedly improved. Plan Discharge patient home to be followed in Dr. Zhong's office within 1 week. Home health care agency nurse visit for management of the wound in the Colton- Ku drains. Oral pain medication at home patient to resume her preadmission medications. Procedures Procedure Date 11/16/24 Procedures Repair of large ventral incarcerated hernias with component separation reconstruction of the abdominal wall and implantation of phasic ST patch. On 11/16/2024
--- NOTE | 2024-11-23 13:09 | PC.CC ---
Addendum entered by Lyric Roman RN 11/23/24 13:13: Spoke to Dr. Zhong regarding signing the HH orders. Original Note: SS reached out to me regarding the patient needing home health services. I informed her that the patient is currently on [facility]. The home health orders have been entered by the nurse and are still pending Dr. Zhong's e-signature.
--- NOTE | 2024-11-23 13:32 | PC.SS ---
Follow up note: SS spoke to patient who had questions about home health services. SS spoke to transfer nurse who jenny had order for home health they just weren't signed yet. Possible d/ today per patient. Patient resides with spouse.
--- NOTE | 2024-11-23 13:33 | PC.NURSE ---
Pt on RA, O2 SATS 93% Pt ambulating on RA, O2 SATS 85%
[2024-11-23 16:00] VITALS: BP 147/78; PULSE 97; RESP 17; TEMP 36.5; O2SAT 95
--- NOTE | 2024-11-25 11:12 | PD.SURDS ---
Planned Discharge Date 11/23/24 DS: Providers Provider Date of admission: 11/19/24 18:25 Primary care physician: Donald Isaacs PA-C Admitting Provider: Devin Zhong MD Attending Provider on Admission: Devin Zhong MD Consults: 11/16/24 20:08 Referral [place] Routine Comment: Referral Physical Therapy Routine Comment: Physician Instructions: Referral Respiratory Therapy Routine Comment: [facility] Referral - Nutrition Routine Comment: Positive screening for nutrition needs. Attending Provider on DC: Devin Zhong MD Discharging Provider: Devin Zhong MD Diagnosis Discharge Diagnosis (1) Incarcerated ventral hernia: Status: Acute (2) Ileus following gastrointestinal surgery: Status: Acute (3) History of colorectal cancer: Status: Acute (4) Atelectasis of left lung: Status: Acute (5) Urinary retention with incomplete bladder emptying: Status: Acute (6) Post-operative pain: Status: Acute Problem List Completed Was Problem List Reviewed/Reconciled?: Yes Hospital Course On the day of admission patient underwent repair of a complex large ventral hernia with component separation and placement of a patch. Postoperatively patient did relatively well she had Colton-Ku drains in the abdominal wall draining extra fluid. The patient developed postoperative ileus and that slow the intestines down she had hypomagnesemia magnesium was replaced. She had atelectasis with elevated white cell count she was treated with antibiotic and she was placed on incentive spirometer at 1 point she required nasogastric tube decompression of the abdominal small bowel ileus. Her condition gradually improved and then nasogastric tube was removed because there was minimal residual she was started on liquid diet that slowly was advanced. In the beginning she was not able to get out of bed because she was quite weak and debilitated because of previous chemotherapy. She was assisted by the physical therapy for ambulation gradually she started ambulating she required Sánchez catheter because of urinary retention and that was removed in 48 hours. She started voiding and started opening her bowel and gradually started walking in the hallways and on 11/23/2024 she was discharged home with the help of the home health care visits arranged is for management of the Colton-Ku as well as wound care. Her condition is improved. She will be followed up in Dr. Zhong's office within 7 days. Status at Discharge Functional status at discharge: uses cane/walker Exam Vital Signs Temp Pulse Resp BP Pulse Ox O2 Del Method O2 Flow Rate 97.7 F 97 17 147/78 H 95 Room Air 2 11/23/24 16:00 11/23/24 16:00 11/23/24 16:00 11/23/24 16:00 11/23/24 16:00 11/23/24 16:00 11/21/24 16:00 Narrative Exam Abdomen is soft and normal distended at this time bowel tones are present incision is healing normally without any hyperemia or drainage the Colton-Ku drains are in place. Cardiopulmonary examination is unremarkable at this time breath sounds are improved. Extremities are unremarkable. Discharge Plan Plan Patient Disposition: HOME (Self Care) Disposition Comment: Discharge home follow-up in the office in 1 week Prescriptions/Referrals Prescriptions/Med Rec: New hydrocodone-acetaminophen 10-325 mg tablet 1 tab PO Q6H MDD 4 PRN (Reason: pain) Qty: 20 0RF No Action glipizide 10 MG tablet 20 mg PO BID Qty: 0 lisinopril 10 MG tablet 10 mg PO QDAY Qty: 0 Humulin R Regular U-100 Insuln 100 unit/mL Solution 1 sliding scale dose SUBCUT USEASDIRECTD PRN (Reason: Hyperglycemia) Humulin N NPH U-100 Insulin 100 unit/mL Suspension 70 unit SUBCUT BID atorvastatin 40 mg Tablet 40 mg PO QDAY metformin 1,000 mg Tablet 1,000 mg PO BID omeprazole 20 mg Capsule,Delayed Release(Dr/Ec) 20 mg PO DAILY cranberry extract 650 mg Capsule 650 mg PO DAILY fluticasone propionate 50 mcg/actuation [place],Suspension 1 spray INTRANASAL DAILY calcium carbonate-vitamin D3 500 mg(1,250mg) -125 unit Tablet 600 tab PO EVERYOTHERDAY multivit with min-folic acid [Women's Multivitamin Gummies] 200 mcg Tablet,Chewable 1 tab PO DAILY clotrimazole 1 % Cream 1 applic TOPICAL DAILY PRN (Reason: itching) cetirizine 10 mg tablet 10 mg PO QDAY vitamin B complex [Balanced B-50] Tablet 1 tab PO QAM docusate sodium 100 mg capsule 100 mg PO DAILY PRN (Reason: constipation) Patient Comments: TAKE 1 CAPSULE BY MOUTH EVERY DAY Referrals: Donald Isaacs PA-C [Primary Care Provider] - Patient/Caregiver Discharge Instructions Other Discharge Activity Instructions:: Home health care visit for management of the Colton Ku drain send wound care. May shower after 48 hours keep the incisions dry Other Discharge Diet Instructions: Advance to regular preadmission diet Education Materials: Hernia Repair Open Dc Print Language: French Stand Alone Forms: Johnna Award Info., Patient Portal Info Letter Discharge Order Discharge Orders: Discharge (Routine); Ordered 11/23/24 Ordered By: Devin Zhong Results Results: Laboratory Laboratory results: results reviewed Procedures Procedure Date 11/16/24 Procedures Repair of large ventral incarcerated hernias with component separation reconstruction of the abdominal wall and implantation of phasic ST patch. On 11/16/2024
--- NOTE | 2024-11-25 14:23 | PC.SS ---
At the request of Transfer RNWill SW completed home health referral based on patient's home address.
--- NOTE | 2024-11-27 09:12 | PC.CC ---
called patient to inform her that HH agencies in [place] has declined due to not being contracted with her insurance. She states she lives in [place] but her [facility] is managed by [facility]. she states she does not want the HH services and can manage the UNA drains with the help of her sister who is a nurse. annie stated she will f/u with Dr. Zhong and her PCP. I offered to send ref to HH agencies in [facility] but she declined. HH ref will be canceled.
== END 2024-11-23 16:13 | disposition home or self-care (01) | DRG 227 ==
LOC: S3NX 19:03 → S3SX 11-23 10:12
PROVIDERS: Admitting Provider Specialist; PCP Physician Assistant; Referring Provider Specialist; Visit Provider Specialist
PROC: 0WUF0JZ Supplement Abdominal Wall with Synthetic Substitute, Open Approach (ICD-10-PCS; principal; 2024-11-16 11:00)
DX: K43.9 Ventral hernia without obstruction or gangrene (principal); K66.0 Peritoneal adhesions (postprocedural) (postinfection); C78.7 Secondary malignant neoplasm of liver and intrahepatic bile duct; J98.11 Atelectasis; K56.7 Ileus, unspecified; J18.9 Pneumonia, unspecified organism; Z85.048 Personal history of other malignant neoplasm of rectum, rectosigmoid junction, and anus; E66.9 Obesity, unspecified; E83.42 Hypomagnesemia; K91.89 Other postprocedural complications and disorders of digestive system; Z92.21 Personal history of antineoplastic chemotherapy; Z68.34 Body mass index [BMI] 34.0-34.9, adult
CPT/HCPCS: 36415; 71045; 74018; 74177; 80053; 81001; 83735; 85025; 85730; 93005; 94664; 97163; A4217; A4649; C1781; G0378; J0131; J0694; J1100; J1171; J1580; J1815; J2250; J2405; J2704; J3010; J3475; J3490; J7030; J7050; J7120; Q9967; A9270

== ENCOUNTER 2024-12-13 14:48 | Outpatient (RCR) | payer MEDICAID, SELFPAY ==
[2024-12-13 16:04] LABS: Basophils # (Auto) 0.1 Thou/mm3 (0.0-0.2); Basophils % (Auto) 1 % (0-2.5); Eosinophils # (Auto) 0.3 Thou/mm3 (0.0-0.5); Eosinophils % (Auto) 3 % (0-10); Hematocrit 33.6 % (36.0-46.0); Hemoglobin 11.1 g/dL (12.0-16.0); Immature Granulocytes % (Auto) 0 % (0-0); Immature Granulocytes Auto 0.02 Thou/mm3 (0.00-0.00); Lymphocytes # (Auto) 3.7 Thou/mm3 (1.0-4.8); Lymphocytes % (Auto) 34 % (10-50); Mean Corpuscular Hemoglobin 28.3 pg (25.0-35.0); Mean Corpuscular Volume 86 fL (80-100); Monocytes # (Auto) 0.8 Thou/mm3 (0.0-0.8); Monocytes % (Auto) 7 % (0-12); Neutrophils # (Auto) 5.9 Thou/mm3 (1.8-7.7); Neutrophils % (Auto) 55 % (37-80); Nucleated Red Blood Cell % 0 /100 WBC (0); Platelet Count 303 Thou/mm3 (140-440); RDW Standard Deviation 39.8 fL (36.4-46.3); Red Blood Count 3.92 Miln/mm3 (4.00-5.20); White Blood Count 10.8 Thou/mm3 (3.6-11.0)
[2024-12-13 16:25] LABS: Alanine Aminotransferase 39 U/L (10-49); Albumin, Serum 4.8 gm/dL (3.5-5.0); Albumin/Globulin Ratio 1.8 (1.2-2.2); Alkaline Phosphatase 131 U/L (46-116); Anion Gap 10 (7-16); Aspartate Amino Transferase 48 U/L (0-34); BUN/Creatinine Ratio 25 Ratio (12-20); Bilirubin,Total 0.3 mg/dL (0.3-1.2); Blood Urea Nitrogen 15 mg/dL (9-23); Calcium 9.8 mg/dL (8.3-10.6); Calcium (Corrected) 9.8 mg/dL (8.5-10.1); Carbon Dioxide 26.4 mMol/L (20.0-31.0); Chloride 100 mMol/L (98-107); Creatinine (Component) 0.6 mg/dL (0.6-1.3); Globulin 2.7 gm/dL (2.3-3.5); Glucose 228 mg/dL (74-106); Osmolality,Calculated 279 (275-295); Potassium 4.5 mMol/L (3.4-5.1); Sodium 136 mMol/L (136-145); Total Protein 7.5 gm/dL (5.7-8.2); eGFR > 60 See Note
[2024-12-13 16:26] LABS: Carcinoembryonic Antigen 14.6 ng/mL (0.0-5.0)
== END 2024-12-18 23:59 | disposition home or self-care (01) ==
LOC: SCTC 14:48
PROVIDERS: PCP Physician Assistant; Referring Provider Physician Assistant; Visit Provider Internal Medicine Hematology & Oncology
DX: C19 Malignant neoplasm of rectosigmoid junction (principal); C78.7 Secondary malignant neoplasm of liver and intrahepatic bile duct; Z90.49 Acquired absence of other specified parts of digestive tract; E11.42 Type 2 diabetes mellitus with diabetic polyneuropathy; G62.0 Drug-induced polyneuropathy; T45.1X5D Adverse effect of antineoplastic and immunosuppressive drugs, subsequent encounter; Z92.21 Personal history of antineoplastic chemotherapy; I10 Essential (primary) hypertension; E66.9 Obesity, unspecified; Z68.32 Body mass index [BMI] 32.0-32.9, adult
CPT/HCPCS: 36591; 80053; 82378; 85025; A4216; J1642

== ENCOUNTER 2024-12-19 11:32 | Outpatient (RCR) | payer MEDICAID, SELFPAY ==
--- NOTE | 2025-01-07 18:21 | CTCFLWUP_ITS ---
Patient: SILVA MEDINA : 1965 Page 2 of 3 FOLLOW UP NOTE DATE OF SERVICE: 12/19/2024 NAME: SILVA MEDINA ACCOUNT: [id number] : 1965 AGE: 59 INTERVAL HISTORY: Adam, a patient with metastatic cancer, presented for follow-up after hernia repair (November 16) and teeth extraction (December 18). History includes previous treatment with Folfox plus Taximab (September 2023) and Folfirinox with bevacizumab. Recent CEA increased from 3.1-3.4 to 14.6, with positive Natira test indicating disease progression. Weight decreased to 160-something pounds. Plan includes CT scan, initiating Lonsurf therapy (Wednesday-Wednesday schedule), pre-treatment labs, continued abdominal binder use for 3-4 months, second opinion referral to [place]/[facility], and follow-up in 2 months with consideration of adding daclizumab in future cycles. ONCOLOGY HISTORY:?[facility] Oncology Hx? 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 K-corina wild-type, NRAS wild-type Peripheral neuropathy secondary to diabetes as well as previous oxaliplatin which was given in the adjuvant setting. 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 The patient is still in the process of healing from the hernia repair surgery. They report feeling generally sleepy due to difficulty sleeping, as they have been trying to stay on their back. The patient is currently using a binder for their stomach as instructed, wearing it at all times except when showering. The patient's last chemotherapy treatment was with Folfax plus Taximab in September 2023, and they had previously received Folfirinox bevacizumab. Recent lab results show that the patient's CEA (carcinoembryonic antigen) level has increased to 14.6, up from a previously normal range of 3.1-3.4. This increase in CEA, along with a positive Natira test, suggests potential cancer progression. The patient's weight has decreased from 172 pounds on December 13, 2024, to the current 160-something range. They are currently taking antibiotics, though the reason for this was not specified. The patient has not reported any specific symptoms related to their cancer or recent surgeries, aside from the mentioned sleepiness and the need to sleep on their back. Medications and Supplements - Folfox plus Taximab - Last chemotherapy in September 2023 - Folfirinox bevacizumab - Received before Folfox plus Taximab - Antibiotics - Taking currently - Lonsurf - Oral chemotherapy - To be taken Wednesday to Wednesday, with Wednesday-Wednesday off Review of Systems General: Positive for fatigue. Musculoskeletal: Positive for difficulty sleeping due to back positioning. Objective: Vital Signs - Weight: 160-something pounds Laboratory, Imaging, and Diagnostic Test Results - CEA: - Current: 14.6 - Previous: 3.1-3.4 (normal) - Natira: Positive HISTORY OF PRESENT ILLNESS: Silva Medina is a 59-year-old ENG speaking female with history of diabetes, hypertension has the following history. 2019 patient started to have rectal bleeding. 05/16/2019: Patient had EGD? May 2020: Patient had colonoscopy done in [place] by Dr. james rojas. I was not able to get pathology report and colonoscopppy report. 07/04/2020: Patient had colon surgery? pathology report showed the following. 08/21/2020: My risk genetic test? 09/10/2020?November 2020: Patient was treated with 3 months of Cape ox chemotherapy in the adjuvant setting. 10/05/2020: PET CT scan negative. 01/02/2021: CEA 4.3. 05/09/2021: CEA 2.8. 06/05/2021: CT scan of the chest abdomen and pelvis with IV contrast?negative for metastatic disease. 09/23/2021: CEA 3.9. 01/22/2022 CEA 3.3, hemoglobin 11.1, MCV 89, WBC 10.6, ANC 5.2, platelets 350,000. Creatinine 0.48. 08/31/2022: CEA 5.5. 12/29/2022: CEA 6.8. 11/09/2022: CT scan of the chest abdomen and pelvis with IV contrast 02/24/2023: CT-guided biopsy of the right lobe liver lesion? 11/28/2019: [facility] CDx study 03/24/2023: Ms. Medina is started on FOLFIRI plus bevacizumab. 08/05/2023: MRI of the abdomen with and without IV contrast 09/01/2023: Ms. Medina received her last dose of FOLFIRI and bevacizumab. 09/22/2023: CT scan of the chest abdomen and pelvis without contrast 10/13/2023: Patient is started on modified FOLFOX 7 and cetuximab. 11/04/2023: PET/CT scan? 02/03/2024: CT scan of the chest without IV contrast? 02/08/2024: MRI of the abdomen with and without contrast? 02/18/2024: Dr. Abhishek mcclelland of [facility] did not feel that Ms. Medina is a surgical candidate. OTHER MEDICAL HISTORY/CONDITIONS: FAMILY HISTORY: ?Clone Family Hx? 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 MEDICATIONS: 1. atorvastatin - 40 mg 1 tab Daily 2. Calcium 600 + D(3) - 600 mg(1,500mg) -200 unit 1 tab As directed 3. Compazine - 10 mg 1 tab Three times a day 4. cranberry extract - 650 mg 1 Capsule Daily 5. cyanocobalamin (vitamin B-12) - 1,000 mcg 1 tab Daily 6. fexofenadine - 180 mg 1 tab Daily 7. glipiZIDE - 10 mg 2 tab Twice a Day 8. HumuLIN N NPH Insulin KwikPen - 100 unit/mL (3 mL) 75 Unit As directed 9. HumuLIN R U-100 - 100 unit/mL As directed 10. Hydrocortisone (Topical) - 1 % 1 As directed 11. Imodium A-D - 2 mg 1 tab one tab po three times a day prn diarrhea 12. lisinopril - 10 mg 1 tab Daily 13. Lonsurf - 20-8.19 mg 3 tab twice a day 14. metFORMIN - 1,000 mg 1 tab Twice a Day 15. multivitamin - 1 tab Daily 16. ondansetron - 8 mg 1 tab every 8 hours as needed for nausea?Palabra Meds? Medications Last Reconciled by Caprice Cerda MA on 12/19/2024 ALLERGIES: No Known Drug Allergies REVIEW OF SYSTEMS: A complete 14-point review of systems was performed and is negative except as noted in interval history. PHYSICAL EXAMINATION:?[facility] PE? VITAL SIGNS: Temperature?97.1, B/P?125/81, Oxygen?Saturation?97% Weight?169?lbs (Change?since?12/13/24:?-3.8?lbs) PAIN: 3 - Between mild and moderate pain ECOG Performance Status: 0 - Asymptomatic and fully active GENERAL APPEARANCE: Appears well, in no apparent distress, appropriately interactive. HEENT: Normocephalic, no temporal wasting, normal conjunctiva, no scleral icterus, normal hearing, lips without lesions, neck normal range of motion. CARDIOVASCULAR: Not assessed. PULMONARY: Normal respiratory effort, no respiratory distress or use of accessory muscles, speaking in full sentences, no tachypnea. EXTREMITIES: No pedal edema or cyanosis. SKIN: Normal skin appearance. NEUROLOGIC: Alert and oriented x4. PSHYCHIATRIC: Appropriate affect, mood normal, behavior normal, intact thought and speech. LABORATORY DATA: I have personally reviewed and interpreted each of the patient?s relevant lab tests, abnormal findings are below: Date 11/20/24 12/13/24 ??WHITE?BLOOD?COUNT?(Thou/mm3) 12.9?H 10.8 ??RED?BLOOD?COUNT?(Miln/mm3) 4.04 3.92?L ??HEMOGLOBIN?(gm/dl) 11.4?L 11.1?L ??HEMATOCRIT?(%) 34.7?L 33.6?L ??PLATELET?COUNT?(Thou/mm3) 308 303 ??NEUTROPHILS?%,?AUTO?(%) 65 55 ??LYMPH?%,?AUTO?(%) 24 34 ??NEUTROPHILS,?AUTO?(Thou/mm3) 8.4?H 5.9 ??GLUCOSE,RANDOM?(mg/dL) ? 228?H ??BLOOD?UREA?NITROGEN?(mg/dL) ? 15 ??CREATININE?(mg/dL) ? 0.60 ??SODIUM?(mmol/L) ? 136 ??POTASSIUM?(mmol/L) ? 4.5 ??CHLORIDE?(mmol/L) ? 100 ??CrCl?(CandG)?(ml/min) ? 99.66 ??AST/SGOT?(Unit/L) ? 48?H ??ALT/SGPT?(Unit/L) ? 39 ??ALKALINE?PHOSPHATASE?(Unit/L) ? 131?H ??BILIRUBIN,?TOTAL?(mg/dL) ? 0.3 ??PROTEIN?TOTAL?(gm/dl) ? 7.5 ??ALBUMIN,?SERUM?(gm/dl) ? 4.8 ??GLOBULIN?(gm/dl) ? 2.7 ??ALBUMIN/GLOBULIN?RATIO ? 1.8 ??CALCIUM,?SERUM?(mg/dL) ? 9.8 ??CALCIUM?SERUM?(CORRECTED)?(mg/dL) ? 9.8 ??CEA?(O*)?(ng/ml) ? 14.6?H ASSESSMENT/PLAN:?Syl Vee Assessment/Plan? 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 K-corina wild-type, NRAS wild-type Peripheral neuropathy secondary to diabetes as well as previous oxaliplatin which was given in the adjuvant setting. 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 S/p surgery as described above. S/p 3 cycles of Cape ox chemotherapy in the adjuvant setting. Ms. Medina is thought to be not a surgical candidate as per [facility] gastroenterology oncology department physician Dr. Abhishek mcclelland. Ms. Medina had consultation with Dr. Hans Loya of gastrointestinal surgical oncology program. PET CT scan done on 11/04/2023 showed interval weekly hypermetabolic 15 mm pulmonary nodule in the right upper lobe. No hypermetabolic areas were noted in the abdomen. on modified FOLFOX 7+ cetuximab since 10/13/2023. Tolerating reasonably well. Patient received FOLFIRI and bevacizumab previously Reviewed scans and shows stable disease. Patient's CEA also very low Patient took chemo break and is off treatment Completed hernia repair #2 obesity diabetes and hypertension Patient have chronic medical conditions Advise diet and exercise and close follow-up with the primary care Patient also have abdominal hernia. Patient will request PCP to refer to general surgery for hernia repair. Patient also already have established care with general surgeon Dr. Stein I encouraged her to talk to him. Metastatic Cancer Assessment: Patient has a history of metastatic cancer, previously treated with Folfox plus avastin in September 2023 and Folfirinox with bevacizumab prior to that. Recent CEA levels have increased from a normal range of 3.1-3.4 to 14.6 in November, indicating disease progression. Natira test was positive, which is noted to be more sensitive in detecting cancer activity. The patient is currently recovering from recent surgeries, including hernia repair on November 16 and teeth extraction on December 18. Plan: - Order CT scan for disease evaluation - Initiate Lonsurf (trifluridine/tipiracil) therapy - Dose to be calculated based on body surface area (BSA) - Patient to take medication Wednesday to Wednesday, with Wednesday and Wednesday off - Order laboratory tests prior to starting Lonsurf - Patient to call Anais (presumably a nurse or coordinator) after receiving medication to arrange blood work - Anais to review blood work results and provide clearance to start treatment - Follow up in 2 months - Consider adding TAM in future cycles - Plan for IV infusion treatment in next cycle (day 1 and day 15) - Refer patient for second oncology opinion at [place] or [facility] - Patient to inform consulting oncologists that Dr. Vee has initiated new treatment due to disease progression - Consider future treatment options including sorafenib if needed Recent Hernia Repair Assessment: Patient underwent hernia repair on November 16, 2024, and is still in the healing process. Patient reports difficulty sleeping due to the need to stay on their back. Plan: - Advise continued use of abdominal binder, especially when standing - Recommend wearing binder for at least 3-4 months, potentially longer - Educate patient on risk of hernia recurrence with heavy lifting - Encourage adherence to post-operative instructions ORDERS: Order # Description [id number] CT Scan + Chest + Abdomen and Pelvis + With W/O Contrast [id number] Comprehensive Metabolic Panel - 12 + CBC with Auto Diff + CEA [id number] Hep A, B and C panel [id number] MD Follow Up 2 Months RETURN TO CLINIC: I reviewed the diagnosis, prognosis, and recommended treatment/procedure options with the patient (and/or their legal physician relations representative), including the potential benefits, risks, side effects and alternative therapies. We also discussed the option of no treatment and the possibility of clinical trial participation, if applicable. All questions were addressed, and they demonstrated understanding. They provided informed consent to proceed with the proposed plan of care. BILLING AND COMPLIANCE: I reviewed external records from providers outside my specialty as summarized above. I spent a total of 50 minutes on this patient?s care on the day of their visit excluding time spent related to any billed procedures. This time includes time spent with the patient as well as time spent documenting in the medical record, reviewing patients records and tests, obtaining history, placing orders, communicating with other healthcare professionals, counseling the patient, family or caregiver, and/or care coordination for the diagnoses above. Electronically Signed by: Leo Vee MD T: 6:19 PM CC: PCP: Donald Isaacs Referring: Donald Isaacs This document was completed utilizing speech recognition software. Grammatical errors, random word insertions, pronoun errors, and incomplete sentences are an occasional consequence of this system due to software limitations, ambient noise, and hardware issues. Any formal questions or concerns about the content, text or information contained within the body of this dictation should be directly addressed to the provider for clarification.
== END 2025-01-18 23:59 | disposition home or self-care (01) ==
LOC: SCTC 11:32
PROVIDERS: PCP Physician Assistant; Referring Provider Physician Assistant; Visit Provider Internal Medicine Hematology & Oncology
DX: C19 Malignant neoplasm of rectosigmoid junction (principal); C78.7 Secondary malignant neoplasm of liver and intrahepatic bile duct; E11.42 Type 2 diabetes mellitus with diabetic polyneuropathy; E66.9 Obesity, unspecified; Z68.31 Body mass index [BMI] 31.0-31.9, adult; Z92.21 Personal history of antineoplastic chemotherapy
CPT/HCPCS: 99212; G0463

== ENCOUNTER → 2025-01-17 | Outpatient (CLI) | payer MEDICAID, SELFPAY ==
--- NOTE | 2025-01-17 11:00 | XR_ITS ---
Examination: CT chest with intravenous contrast CT abdomen with intravenous contrast CT pelvis with intravenous contrast CT chest without intravenous contrast CT abdomen without intravenous contrast CT pelvis without intravenous contrast 2-D coronal and sagittal reconstructions INDICATIONS: Diagnosis malignant neoplasm sigmoid colon diagnosis 2022 Time of exam: January 17, 2025 1112 hours Comparison November 20, 2024 CT abdomen pelvis, CT chest abdomen pelvis July 06, 2024, MR abdomen February 08, 2024, PET/CT scan November 04, 2023 CTDI: vol (mGy) : 26.8 DLP: (mGycm): 1542 Technique: Multiple axial images of the chest, abdomen and pelvis with intravenous contrast, 3.0 mm slice thickness. Images obtained post intravenous injection Isovue 370 60 cc. 2-D sagittal and coronal reconstructions. Low dose protocols were performed. One or more of the following dose reduction techniques were used; automated exposure control, adjustment of the mA and/or KV according to patient size, use of iterative reconstruction technique. Findings: No thoracic aortic aneurysm dilatation No pulmonary artery emboli No paratracheal tracheobronchial or bronchopulmonary adenopathy Right upper lobe pulmonary nodule, indistinct margins, measures 17 mm compared to 8 mm July 06, 2024 New 6 mm cavitary nodule left upper lobe image 103 4 mm pulmonary nodule posterior left upper lobe image 107 New 2 mm pulmonary nodule left lower lobe image 134 New 3 mm pulmonary nodule right midlung image 135 4 mm pulmonary nodule right lower lobe image 138 New 4 mm pulmonary nodule right lower lobe image 147 New 4 mm pulmonary nodule lingular segment image 155 Pulmonary nodule right posterior lung measures 7 mm compared to 4 mm on July 06, 2024 New 6 mm pulmonary nodule left lower lobe image 202 Very poorly visualized lesions anterior right lobe of the liver approximately 13 mm and posterior right lobe of the liver approximately 18 mm Absent gallbladder No pancreatic splenic or adrenal mass No hydronephrosis No interval abdominal or pelvic lymphadenopathy No bladder mass No pelvic mass Small likely postop fluid collection in the anterior pelvic wall measuring 15 mm in thickness and at least 7 cm in medial lateral dimension IMPRESSION: Progression of pulmonary nodular metastatic disease compared with CT chest July 06, 2024 Recommend repeat MRI abdomen pre and post contrast to best assess stability of liver lesions compared to the MRI abdomen February 08, 2024
== END | disposition home or self-care (01) ==
LOC: CCTX 10:31
PROVIDERS: Referring Provider Internal Medicine Hematology & Oncology; Visit Provider Internal Medicine Hematology & Oncology
DX: K76.9 Liver disease, unspecified (principal); C78.00 Secondary malignant neoplasm of unspecified lung; C18.7 Malignant neoplasm of sigmoid colon; C78.7 Secondary malignant neoplasm of liver and intrahepatic bile duct
CPT/HCPCS: 71270; 74178; A4649; Q9967

== ENCOUNTER 2025-04-09 08:22 | Outpatient (RCR) | payer MEDICAID, SELFPAY ==
[2025-03-21 09:15] LABS: Collection Type, Urine Voided
[2025-03-21 09:24] LABS: Basophils # (Auto) 0.0 Thou/mm3 (0.0-0.2); Basophils % (Auto) 1 % (0-2.5); Eosinophils # (Auto) 0.0 Thou/mm3 (0.0-0.5); Eosinophils % (Auto) 0 % (0-10); Hematocrit 29.1 % (36.0-46.0); Hemoglobin 9.5 g/dL (12.0-16.0); Immature Granulocytes Auto 0.03 Thou/mm3 (0.00-0.00); Lymphocytes # (Auto) 2.8 Thou/mm3 (1.0-4.8); Lymphocytes % (Auto) 34 % (10-50); Mean Corpuscular HGB Conc 32.6 g/dl (31.0-37.0); Mean Corpuscular Hemoglobin 28.9 pg (25.0-35.0); Mean Corpuscular Volume 88 fL (80-100); Monocytes # (Auto) 0.4 Thou/mm3 (0.0-0.8); Monocytes % (Auto) 5 % (0-12); Neutrophils # (Auto) 5.0 Thou/mm3 (1.8-7.7); Neutrophils % (Auto) 60 % (37-80); Nucleated Red Blood Cell # 0.00 Thou/mm3 (0.00-0.00); Nucleated Red Blood Cell % 0 /100 WBC (0); Platelet Count 351 Thou/mm3 (140-440); RDW Standard Deviation 49.1 fL (36.4-46.3); Red Blood Count 3.29 Miln/mm3 (4.00-5.20); White Blood Count 8.3 Thou/mm3 (3.6-11.0)
[2025-03-21 09:32] LABS: Bilirubin,Urine Negative (Negative); Blood,Urine Negative (Negative); Clarity,Urine Clear (Clear/Hazy); Color,Urine Yellow (Lt Yel-Yel); Glucose, Urine Negative (Negative); Ketones,Urine Negative (Negative); Leukocyte Esterase,Urine Positive (Negative); Nitrite,Urine Negative (Negative); PH,Urine 5.0 (5.0-7.0); Protein,Urine Trace (Neg - Trace); RBC,Urine 6 /hpf (0-3); Specific Gravity,Urine 1.022 (1.001-1.035); Squamous Epithelial Cell,Urine 2 /hpf (0-5); Urobilinogen,Urine Negative mg/dL (0.0-1.0); WBC,Urine 27 /hpf (0-5)
[2025-03-21 09:37] LABS: Alanine Aminotransferase 37 U/L (10-49); Albumin, Serum 4.5 gm/dL (3.5-5.0); Albumin/Globulin Ratio 1.6 (1.2-2.2); Alkaline Phosphatase 136 U/L (46-116); Anion Gap 11 (7-16); Aspartate Amino Transferase 44 U/L (0-34); BUN/Creatinine Ratio 22 Ratio (12-20); Bilirubin,Total 0.3 mg/dL (0.3-1.2); Blood Urea Nitrogen 13 mg/dL (9-23); Calcium 10.0 mg/dL (8.3-10.6); Calcium (Corrected) 10.0 mg/dL (8.5-10.1); Carbon Dioxide 25.1 mMol/L (20.0-31.0); Chloride 105 mMol/L (98-107); Creatinine (Component) 0.6 mg/dL (0.6-1.3); Globulin 2.9 gm/dL (2.3-3.5); Glucose 114 mg/dL (74-106); Osmolality,Calculated 282 (275-295); Potassium 4.0 mMol/L (3.4-5.1); Sodium 141 mMol/L (136-145); Total Protein 7.4 gm/dL (5.7-8.2); eGFR > 60 See Note
[2025-03-21 10:00] LABS: Carcinoembryonic Antigen 30.4 ng/mL (0.0-5.0)
[2025-03-21 10:04] LABS: Ferritin 148 ng/mL (7.3-270.7); Iron 108 mcg/dL (50-170); Percent Iron Saturation 37 % (20-55); Total Iron Binding Capacity 291 mcg/dL (250-425); Unsaturated Iron Binding 183 (225-295)
[2025-03-21 10:09] LABS: Folate > 24.00 ng/mL (>5.38); Vitamin B12 394 pg/mL (211-911)
[2025-04-09 08:59] LABS: Collection Type, Urine Voided
[2025-04-09 09:05] LABS: Basophils # (Auto) 0.0 Thou/mm3 (0.0-0.2); Basophils % (Auto) 1 % (0-2.5); Eosinophils # (Auto) 0.1 Thou/mm3 (0.0-0.5); Eosinophils % (Auto) 1 % (0-10); Hematocrit 29.3 % (36.0-46.0); Hemoglobin 9.2 g/dL (12.0-16.0); Immature Granulocytes Auto 0.02 Thou/mm3 (0.00-0.00); Lymphocytes # (Auto) 2.8 Thou/mm3 (1.0-4.8); Lymphocytes % (Auto) 42 % (10-50); Mean Corpuscular HGB Conc 31.4 g/dl (31.0-37.0); Mean Corpuscular Hemoglobin 28.6 pg (25.0-35.0); Mean Corpuscular Volume 91 fL (80-100); Monocytes # (Auto) 0.6 Thou/mm3 (0.0-0.8); Monocytes % (Auto) 10 % (0-12); Neutrophils # (Auto) 3.1 Thou/mm3 (1.8-7.7); Neutrophils % (Auto) 47 % (37-80); Nucleated Red Blood Cell # 0.00 Thou/mm3 (0.00-0.00); Nucleated Red Blood Cell % 0 /100 WBC (0); Platelet Count 400 Thou/mm3 (140-440); RDW Standard Deviation 55.6 fL (36.4-46.3); Red Blood Count 3.22 Miln/mm3 (4.00-5.20); White Blood Count 6.6 Thou/mm3 (3.6-11.0)
[2025-04-09 09:20] LABS: Bilirubin,Urine Negative (Negative); Blood,Urine Negative (Negative); Clarity,Urine Clear (Clear/Hazy); Color,Urine Yellow (Lt Yel-Yel); Glucose, Urine Negative (Negative); Hyaline Casts,Urine < 1 /hpf (0-1); Ketones,Urine Negative (Negative); Leukocyte Esterase,Urine Positive (Negative); Nitrite,Urine Negative (Negative); PH,Urine 5.5 (5.0-7.0); Protein,Urine Trace (Neg - Trace); RBC,Urine 1 /hpf (0-3); Specific Gravity,Urine 1.017 (1.001-1.035); Squamous Epithelial Cell,Urine < 1 /hpf (0-5); Urobilinogen,Urine Negative mg/dL (0.0-1.0); WBC,Urine 10 /hpf (0-5)
[2025-04-09 09:24] LABS: Alanine Aminotransferase 27 U/L (10-49); Albumin, Serum 4.6 gm/dL (3.5-5.0); Albumin/Globulin Ratio 1.5 (1.2-2.2); Alkaline Phosphatase 170 U/L (46-116); Anion Gap 14 (7-16); Aspartate Amino Transferase 32 U/L (0-34); BUN/Creatinine Ratio 16 Ratio (12-20); Bilirubin,Total 0.3 mg/dL (0.3-1.2); Blood Urea Nitrogen 11 mg/dL (9-23); Calcium 9.5 mg/dL (8.3-10.6); Calcium (Corrected) 9.5 mg/dL (8.5-10.1); Carbon Dioxide 26.5 mMol/L (20.0-31.0); Chloride 99 mMol/L (98-107); Creatinine (Component) 0.7 mg/dL (0.6-1.3); Globulin 3.1 gm/dL (2.3-3.5); Glucose 185 mg/dL (74-106); Osmolality,Calculated 281 (275-295); Potassium 4.4 mMol/L (3.4-5.1); Sodium 139 mMol/L (136-145); Total Protein 7.7 gm/dL (5.7-8.2); eGFR > 60 See Note
[2025-04-09 09:26] LABS: Carcinoembryonic Antigen 25.9 ng/mL (0.0-5.0)
== END 2025-04-20 23:59 | disposition home or self-care (01) ==
LOC: SCTC 08:22
PROVIDERS: PCP Physician Assistant; Referring Provider Physician Assistant; Visit Provider Internal Medicine Hematology & Oncology
DX: Z51.11 Encounter for antineoplastic chemotherapy (principal); C19 Malignant neoplasm of rectosigmoid junction; C78.7 Secondary malignant neoplasm of liver and intrahepatic bile duct; E11.42 Type 2 diabetes mellitus with diabetic polyneuropathy; G62.0 Drug-induced polyneuropathy; T45.1X5D Adverse effect of antineoplastic and immunosuppressive drugs, subsequent encounter; I10 Essential (primary) hypertension; E66.9 Obesity, unspecified; Z68.31 Body mass index [BMI] 31.0-31.9, adult
CPT/HCPCS: 80053; 81001; 82378; 82607; 82728; 82746; 83540; 83550; 85025; 96413; 96415; A4216; J1642; J3490; J7040; Q5107

== ENCOUNTER 2025-05-07 07:49 | Outpatient (RCR) | payer MEDICAID, SELFPAY ==
[2025-04-23 09:20] LABS: Collection Type, Urine Clean Catch
[2025-04-23 09:28] LABS: Basophils # (Auto) 0.0 Thou/mm3 (0.0-0.2); Basophils % (Auto) 0 % (0-2.5); Eosinophils # (Auto) 0.0 Thou/mm3 (0.0-0.5); Eosinophils % (Auto) 0 % (0-10); Hematocrit 25.3 % (36.0-46.0); Immature Granulocytes Auto 0.03 Thou/mm3 (0.00-0.00); Lymphocytes # (Auto) 2.9 Thou/mm3 (1.0-4.8); Lymphocytes % (Auto) 43 % (10-50); Mean Corpuscular HGB Conc 32.8 g/dl (31.0-37.0); Mean Corpuscular Hemoglobin 29.4 pg (25.0-35.0); Mean Corpuscular Volume 90 fL (80-100); Monocytes # (Auto) 0.3 Thou/mm3 (0.0-0.8); Monocytes % (Auto) 4 % (0-12); Neutrophils # (Auto) 3.4 Thou/mm3 (1.8-7.7); Neutrophils % (Auto) 51 % (37-80); Nucleated Red Blood Cell # 0.00 Thou/mm3 (0.00-0.00); Nucleated Red Blood Cell % 0 /100 WBC (0); Platelet Count 290 Thou/mm3 (140-440); RDW Standard Deviation 51.9 fL (36.4-46.3); Red Blood Count 2.82 Miln/mm3 (4.00-5.20); White Blood Count 6.6 Thou/mm3 (3.6-11.0)
[2025-04-23 09:31] LABS: Hemoglobin 8.3 g/dL (12.0-16.0)
[2025-04-23 09:44] LABS: Alanine Aminotransferase 25 U/L (10-49); Albumin, Serum 4.5 gm/dL (3.5-5.0); Albumin/Globulin Ratio 1.7 (1.2-2.2); Alkaline Phosphatase 124 U/L (46-116); Anion Gap 11 (7-16); Aspartate Amino Transferase 31 U/L (0-34); BUN/Creatinine Ratio 20 Ratio (12-20); Bilirubin,Total 0.4 mg/dL (0.3-1.2); Bilirubin,Urine Negative (Negative); Blood Urea Nitrogen 12 mg/dL (9-23); Blood,Urine Negative (Negative); Calcium 9.7 mg/dL (8.3-10.6); Calcium (Corrected) 9.7 mg/dL (8.5-10.1); Carbon Dioxide 25.5 mMol/L (20.0-31.0); Chloride 102 mMol/L (98-107); Clarity,Urine Clear (Clear/Hazy); Color,Urine Yellow (Lt Yel-Yel); Creatinine (Component) 0.6 mg/dL (0.6-1.3); Culture Indicated,Urine Not Indicated; Globulin 2.6 gm/dL (2.3-3.5); Glucose 161 mg/dL (74-106); Glucose, Urine Negative (Negative); Hyaline Casts,Urine < 1 /hpf (0-1); Ketones,Urine Trace (Negative); Leukocyte Esterase,Urine Positive (Negative); Nitrite,Urine Negative (Negative); Osmolality,Calculated 278 (275-295); PH,Urine 5.0 (5.0-7.0); Potassium 4.2 mMol/L (3.4-5.1); Protein,Urine Negative (Neg - Trace); RBC,Urine 2 /hpf (0-3); Sodium 138 mMol/L (136-145); Specific Gravity,Urine 1.019 (1.001-1.035); Squamous Epithelial Cell,Urine 2 /hpf (0-5); Total Protein 7.1 gm/dL (5.7-8.2); Urobilinogen,Urine Negative mg/dL (0.0-1.0); WBC,Urine 5 /hpf (0-5); eGFR > 60 See Note
[2025-04-23 10:29] LABS: Carcinoembryonic Antigen 21.2 ng/mL (0.0-5.0); Hepatitis A Antibody IgM Non Reactive (Non React); Hepatitis B Core Antibody IgM Non Reactive (Non React); Hepatitis B Surface Antigen Non Reactive (Non React); Hepatitis C Antibody Non Reactive (Non React)
--- NOTE | 2025-05-03 07:07 | CTCFLWUP_ITS ---
Patient: SILVA MEDINA : 1965 Page 12 of 13 FOLLOW UP NOTE DATE OF SERVICE: 05/02/2025 NAME: SILVA MEDINA ACCOUNT: [id number] : 1965 AGE: 59 INTERVAL HISTORY: Adam, a patient with metastatic cancer, presented for follow-up. Patient was found to have worsening CEA level as well as imaging showing worsening cancer and was started on Lonsurf and bevacizumab. Patient has been tolerating the treatment well but likely having progression again. Patient's natriuretic testing is showing sudden increase in the send CT DNA levels. Will order imaging. Will change therapy to FOLFIRI plus cetuximab. Will continue current therapy until the new chemotherapy is approved. He has also been feeling fatigued. Patient takes oral supplement but likely has poor tolerance and absorption secondary to her loss of bowel length. 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 K-corina wild-type, NRAS wild-type Peripheral neuropathy secondary to diabetes as well as previous oxaliplatin which was given in the adjuvant setting. 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 (07/05/2020 TREATMENT HISTORY: Care?Plan Start?Date Cycle Day Intent CapOX?adj?T3N1?3mon?4?cycles 08/15/2020 1 21 Curative?(adjuvant) VENOfer?200mg?IV?wkly 09/10/2020 1 70 Palliative FOLFIRI?+?Bevacizumab?10?mg/kg 03/24/2023 1 28 Palliative mFOLFOX7+?Cetuximab-?Kras,?Nras?wild?type 10/13/2023 1 14 Palliative Bevacizumab?5mg/kg 03/21/2025 1 28 Palliative FOLFIRI?+?CETUXimab 05/02/2025 1 14 Palliative VENOfer?200mg?IV?wkly?for?10?weeks 05/02/2025 1 70 Palliative Lonsurf with bevacizumab from December 2024 till April 2025 HISTORY OF PRESENT ILLNESS: Silva Medina is a 59-year-old ENG speaking female with history of diabetes, hypertension has the following history. 2018 patient started to have rectal bleeding. 05/16/2019: Patient had EGD? May 2020: Patient had colonoscopy done in [place] by Dr. james rojas. I was not able to get pathology report and colonoscopppy report. 07/04/2020: Patient had colon surgery? pathology report showed the following. 08/21/2020: My risk genetic test? 09/10/2020?November 2020: Patient was treated with 3 months of Cape ox chemotherapy in the adjuvant setting. 10/05/2020: PET CT scan negative. 01/02/2021: CEA 4.3. 05/09/2021: CEA 2.8. 06/05/2021: CT scan of the chest abdomen and pelvis with IV contrast?negative for metastatic disease. 09/23/2021: CEA 3.9. 01/22/2022 CEA 3.3, hemoglobin 11.1, MCV 89, WBC 10.6, ANC 5.2, platelets 350,000. Creatinine 0.48. 08/31/2022: CEA 5.5. 12/29/2022: CEA 6.8. 11/09/2022: CT scan of the chest abdomen and pelvis with IV contrast 02/24/2023: CT-guided biopsy of the right lobe liver lesion? [facility]: Ms. Medina is started on FOLFIRI plus bevacizumab. 08/05/2023: MRI of the abdomen with and without IV contrast 09/01/2023: Ms. Medina received her last dose of FOLFIRI and bevacizumab. 09/22/2023: CT scan of the chest abdomen and pelvis without contrast 10/13/2023: Patient is started on modified FOLFOX 7 and cetuximab. 11/04/2023: PET/CT scan? 02/03/2024: CT scan of the chest without IV contrast? 02/08/2024: MRI of the abdomen with and without contrast? 02/18/2024: Dr. Abhishek stover of [facility] did not feel that Ms. Medina is a surgical candidate. OTHER MEDICAL HISTORY/CONDITIONS: FAMILY HISTORY: SOCIAL HISTORY: [employer] HISTORY: Vaginal?Bleeding:?0-None MEDICATIONS: 1. atorvastatin - 40 mg 1 tab Daily 2. Calcium 600 + D(3) - 600 mg(1,500mg) -200 unit 1 tab As directed 3. clindamycin phosphate - 1 % 1 gm Daily 4. Compazine - 10 mg 1 tab Three times a day 5. cranberry extract - 650 mg 1 Capsule Daily 6. cyanocobalamin (vitamin B-12) - 1,000 mcg 1 tab Daily 7. fexofenadine - 180 mg 1 tab Daily 8. glipiZIDE - 10 mg 2 tab Twice a Day 9. HumuLIN N NPH Insulin KwikPen - 100 unit/mL (3 mL) 75 Unit As directed 10. HumuLIN R U-100 - 100 unit/mL As directed 11. Hydrocortisone (Topical) - 1 % 1 As directed 12. Imodium A-D - 2 mg 1 tab one tab po three times a day prn diarrhea 13. lisinopril - 10 mg 1 tab Daily 14. Lonsurf - 20-8.19 mg 3 tab twice a day 15. Lonsurf - 20-8.19 mg 3 tab Twice a Day 16. metFORMIN - 1,000 mg 1 tab Twice a Day 17. multivitamin - 1 tab Daily 18. ondansetron - 8 mg 1 tab every 8 hours as needed for nausea Medications Last Reconciled by Genesis Gerardo MD on 05/02/2025 ALLERGIES: No Known Drug Allergies REVIEW OF SYSTEMS: A complete 14-point review of systems was performed and is negative except as noted in interval history. PHYSICAL EXAMINATION: VITAL SIGNS: Temperature?97.6, B/P?149/78, Oxygen?Saturation?95% Weight?169?lbs (Change?since?04/23/25:?1.6?lbs) PAIN: 0 - No pain ECOG Performance Status: 1 - Symptomatic; ambulatory; restricted in strenuous activity GENERAL APPEARANCE: Appears well, in no apparent distress, appropriately interactive. HEENT: Normocephalic, no temporal wasting, normal conjunctiva, no scleral icterus, normal hearing, lips without lesions, neck normal range of motion. CARDIOVASCULAR: Not assessed. PULMONARY: Normal respiratory effort, no respiratory distress or use of accessory muscles, speaking in full sentences, no tachypnea. EXTREMITIES: No pedal edema or cyanosis. SKIN: Normal skin appearance. NEUROLOGIC: Alert and oriented x4. PSHYCHIATRIC: Appropriate affect, mood normal, behavior normal, intact thought and speech. LABORATORY DATA: I have personally reviewed and interpreted each of the patient?s relevant lab tests, abnormal findings are below: Date 04/09/25 04/23/25 ??WHITE?BLOOD?COUNT?(Thou/mm3) 6.6 6.6 ??RED?BLOOD?COUNT?(Miln/mm3) 3.22?L 2.82?L ??HEMOGLOBIN?(gm/dl) 9.2?L 8.3?L ??HEMATOCRIT?(%) 29.3?L 25.3?L ??PLATELET?COUNT?(Thou/mm3) 400 290 ??NEUTROPHILS?%,?AUTO?(%) 47 51 ??LYMPH?%,?AUTO?(%) 42 43 ??NEUTROPHILS,?AUTO?(Thou/mm3) 3.1 3.4 ??GLUCOSE,RANDOM?(mg/dL) ? 161?H ??BLOOD?UREA?NITROGEN?(mg/dL) ? 12 ??CREATININE?(mg/dL) ? 0.60 ??SODIUM?(mmol/L) ? 138 ??POTASSIUM?(mmol/L) ? 4.2 ??CHLORIDE?(mmol/L) ? 102 ??CrCl?(CandG)?(ml/min) ? 98.08 ??AST/SGOT?(Unit/L) ? 31 ??ALT/SGPT?(Unit/L) ? 25 ??ALKALINE?PHOSPHATASE?(Unit/L) ? 124?H ??BILIRUBIN,?TOTAL?(mg/dL) ? 0.4 ??PROTEIN?TOTAL?(gm/dl) ? 7.1 ??ALBUMIN,?SERUM?(gm/dl) ? 4.5 ??GLOBULIN?(gm/dl) ? 2.6 ??ALBUMIN/GLOBULIN?RATIO ? 1.7 ??CALCIUM,?SERUM?(mg/dL) ? 9.7 ??CALCIUM?SERUM?(CORRECTED)?(mg/dL) ? 9.7 ??CEA?(O*)?(ng/ml) ? 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 K-corina wild-type, NRAS wild-type Peripheral neuropathy secondary to diabetes as well as previous oxaliplatin which was given in the adjuvant setting. 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 S/p surgery as described above. S/p 3 cycles of Cape ox chemotherapy in the adjuvant setting. Ms. Medina is thought to be not a surgical candidate as per [facility] gastroenterology oncology department physician Dr. Abhishek stover. Recommendation from Dr. Stover is to continue on chemotherapy with the least side effects as long as the cancer remains stable or cancer growth is minimal Ms. Medina had consultation with Dr. Hans Loya of gastrointestinal surgical oncology program. Took a chemo break to do hernia repair as well as dental procedures Started on Lonsurf and bevacizumab in December 2024 and have now progressed Will change treatment to FOLFIRI with the cetuximab Patient will continue bevacizumab until patient can start Of therapy Patient have anemia Patient have low iron saturation and elevated ferritin likely from chronic inflammation that is masking underlying deficiencies Also have low B12 even though patient has been on oral supplement secondary to poor absorption Will start on subcu B12 Will need IV Venofer #2 obesity diabetes and hypertension Patient have chronic medical conditions Advised to follow-up with the primary care Recent Hernia Repair Assessment: Patient underwent hernia repair on November 16, 2024, and is still in the healing process. Patient reports difficulty sleeping due to the need to stay on their back. Plan: - Advise continued use of abdominal binder, especially when standing - Recommend wearing binder for at least 3-4 months, potentially longer - Educate patient on risk of hernia recurrence with heavy lifting - Encourage adherence to post-operative instructions ORDERS: Order # Description [id number] CEA [id number] Discontinue CIV Pump RETURN TO CLINIC: I reviewed the diagnosis, prognosis, and recommended treatment/procedure options with the patient (and/or their legal sales representative aircraft), including the potential benefits, risks, side effects and alternative therapies. We also discussed the option of no treatment and the possibility of clinical trial participation, if applicable. All questions were addressed, and they demonstrated understanding. They provided informed consent to proceed with the proposed plan of care. BILLING AND COMPLIANCE: I reviewed external records from providers outside my specialty as summarized above. I spent a total of 50 minutes on this patient?s care on the day of their visit excluding time spent related to any billed procedures. This time includes time spent with the patient as well as time spent documenting in the medical record, reviewing patients records and tests, obtaining history, placing orders, communicating with other healthcare professionals, counseling the patient, family or caregiver, and/or care coordination for the diagnoses above. Electronically Signed by: {Object.Sanct_ID*PnP.NameFL@M}, {Object.Sanct_ID*PnP.Suffix@U} D: {Object.Sanct_Date} T: {Object.Sanct_Time} CC: PCP: Donald Isaacs Referring: Donald Isaacs This document was completed utilizing speech recognition software. Grammatical errors, random word insertions, pronoun errors, and incomplete sentences are an occasional consequence of this system due to software limitations, ambient noise, and hardware issues. Any formal questions or concerns about the content, text or information contained within the body of this dictation should be directly addressed to the provider for clarification.
[2025-05-07 08:59] LABS: Collection Type, Urine Voided
[2025-05-07 09:03] LABS: Basophils # (Auto) 0.0 Thou/mm3 (0.0-0.2); Basophils % (Auto) 0 % (0-2.5); Eosinophils # (Auto) 0.0 Thou/mm3 (0.0-0.5); Eosinophils % (Auto) 1 % (0-10); Hematocrit 28.3 % (36.0-46.0); Hemoglobin 9.2 g/dL (12.0-16.0); Immature Granulocytes Auto 0.01 Thou/mm3 (0.00-0.00); Lymphocytes # (Auto) 2.6 Thou/mm3 (1.0-4.8); Lymphocytes % (Auto) 43 % (10-50); Mean Corpuscular HGB Conc 32.5 g/dl (31.0-37.0); Mean Corpuscular Hemoglobin 30.0 pg (25.0-35.0); Mean Corpuscular Volume 92 fL (80-100); Monocytes # (Auto) 1.0 Thou/mm3 (0.0-0.8); Monocytes % (Auto) 17 % (0-12); Neutrophils # (Auto) 2.4 Thou/mm3 (1.8-7.7); Neutrophils % (Auto) 39 % (37-80); Nucleated Red Blood Cell # 0.00 Thou/mm3 (0.00-0.00); Nucleated Red Blood Cell % 0 /100 WBC (0); Platelet Count 321 Thou/mm3 (140-440); RDW Standard Deviation 61.4 fL (36.4-46.3); Red Blood Count 3.07 Miln/mm3 (4.00-5.20); White Blood Count 6.1 Thou/mm3 (3.6-11.0)
[2025-05-07 09:11] LABS: Bilirubin,Urine Negative (Negative); Blood,Urine Negative (Negative); Clarity,Urine Clear (Clear/Hazy); Color,Urine Yellow (Lt Yel-Yel); Glucose, Urine Negative (Negative); Ketones,Urine Negative (Negative); Leukocyte Esterase,Urine Positive (Negative); Nitrite,Urine Negative (Negative); PH,Urine 7.5 (5.0-7.0); Protein,Urine Trace (Neg - Trace); RBC,Urine 3 /hpf (0-3); Specific Gravity,Urine 1.016 (1.001-1.035); Squamous Epithelial Cell,Urine < 1 /hpf (0-5); Urobilinogen,Urine 4.0 mg/dL (0.0-1.0); WBC,Urine 13 /hpf (0-5)
[2025-05-07 09:24] LABS: Carcinoembryonic Antigen 40.1 ng/mL (0.0-5.0)
[2025-05-07 09:30] LABS: Alanine Aminotransferase 33 U/L (10-49); Albumin, Serum 4.8 gm/dL (3.5-5.0); Albumin/Globulin Ratio 1.7 (1.2-2.2); Alkaline Phosphatase 160 U/L (46-116); Anion Gap 9 (7-16); Aspartate Amino Transferase 41 U/L (0-34); BUN/Creatinine Ratio 15 Ratio (12-20); Bilirubin,Total 0.5 mg/dL (0.3-1.2); Blood Urea Nitrogen 9 mg/dL (9-23); Calcium 9.9 mg/dL (8.3-10.6); Calcium (Corrected) 9.9 mg/dL (8.5-10.1); Carbon Dioxide 26.9 mMol/L (20.0-31.0); Chloride 100 mMol/L (98-107); Creatinine (Component) 0.6 mg/dL (0.6-1.3); Globulin 2.9 gm/dL (2.3-3.5); Glucose 155 mg/dL (74-106); Osmolality,Calculated 273 (275-295); Potassium 4.2 mMol/L (3.4-5.1); Sodium 136 mMol/L (136-145); Total Protein 7.7 gm/dL (5.7-8.2); eGFR > 60 See Note
== END 2025-05-20 23:59 | disposition home or self-care (01) ==
LOC: SCTC 07:49
PROVIDERS: PCP Physician Assistant; Referring Provider Physician Assistant; Visit Provider Internal Medicine Hematology & Oncology
DX: Z51.11 Encounter for antineoplastic chemotherapy (principal); C19 Malignant neoplasm of rectosigmoid junction; C78.7 Secondary malignant neoplasm of liver and intrahepatic bile duct; D64.9 Anemia, unspecified; E53.8 Deficiency of other specified B group vitamins; E66.9 Obesity, unspecified; Z68.32 Body mass index [BMI] 32.0-32.9, adult; E11.9 Type 2 diabetes mellitus without complications; I10 Essential (primary) hypertension; Z79.84 Long term (current) use of oral hypoglycemic drugs; Z79.4 Long term (current) use of insulin
CPT/HCPCS: 80053; 80074; 81001; 82378; 85025; 96413; 99212; A4216; J1100; J1642; J2405; J3490; J7040; Q5107; G0463

== ENCOUNTER 2025-06-20 09:46 | Outpatient (RCR) | payer MEDICAID, SELFPAY ==
[2025-05-21 09:08] LABS: Basophils # (Auto) 0.0 Thou/mm3 (0.0-0.2); Basophils % (Auto) 0 % (0-2.5); Eosinophils # (Auto) 0.0 Thou/mm3 (0.0-0.5); Eosinophils % (Auto) 0 % (0-10); Hematocrit 26.4 % (36.0-46.0); Immature Granulocytes Auto 0.04 Thou/mm3 (0.00-0.00); Lymphocytes # (Auto) 2.4 Thou/mm3 (1.0-4.8); Lymphocytes % (Auto) 35 % (10-50); Mean Corpuscular HGB Conc 33.0 g/dl (31.0-37.0); Mean Corpuscular Hemoglobin 30.2 pg (25.0-35.0); Mean Corpuscular Volume 92 fL (80-100); Monocytes # (Auto) 0.3 Thou/mm3 (0.0-0.8); Monocytes % (Auto) 5 % (0-12); Neutrophils # (Auto) 4.1 Thou/mm3 (1.8-7.7); Neutrophils % (Auto) 60 % (37-80); Nucleated Red Blood Cell # 0.00 Thou/mm3 (0.00-0.00); Nucleated Red Blood Cell % 0 /100 WBC (0); Platelet Count 315 Thou/mm3 (140-440); RDW Standard Deviation 55.4 fL (36.4-46.3); Red Blood Count 2.88 Miln/mm3 (4.00-5.20); White Blood Count 6.9 Thou/mm3 (3.6-11.0)
[2025-05-21 09:13] LABS: Magnesium 1.3 mg/dL (1.6-2.6)
[2025-05-21 09:17] LABS: Alanine Aminotransferase 33 U/L (10-49); Albumin, Serum 4.7 gm/dL (3.5-5.0); Albumin/Globulin Ratio 1.5 (1.2-2.2); Alkaline Phosphatase 129 U/L (46-116); Anion Gap 12 (7-16); Aspartate Amino Transferase 38 U/L (0-34); BUN/Creatinine Ratio 23 Ratio (12-20); Bilirubin,Total 0.4 mg/dL (0.3-1.2); Blood Urea Nitrogen 14 mg/dL (9-23); Calcium 9.8 mg/dL (8.3-10.6); Calcium (Corrected) 9.8 mg/dL (8.5-10.1); Carbon Dioxide 24.0 mMol/L (20.0-31.0); Chloride 103 mMol/L (98-107); Creatinine (Component) 0.6 mg/dL (0.6-1.3); Globulin 3.1 gm/dL (2.3-3.5); Glucose 136 mg/dL (74-106); Osmolality,Calculated 280 (275-295); Potassium 3.9 mMol/L (3.4-5.1); Sodium 139 mMol/L (136-145); Total Protein 7.8 gm/dL (5.7-8.2); eGFR > 60 See Note
[2025-05-21 09:18] LABS: Carcinoembryonic Antigen 24.9 ng/mL (0.0-5.0)
[2025-05-21 09:26] LABS: Hemoglobin 8.7 g/dL (12.0-16.0)
[2025-05-23 13:27] LABS: Ferritin 210 ng/mL (7.3-270.7); Iron 117 mcg/dL (50-170); Percent Iron Saturation 42 % (20-55); Total Iron Binding Capacity 274 mcg/dL (250-425); Unsaturated Iron Binding 157 (225-295)
[2025-05-23 13:45] LABS: Folate > 24.00 ng/mL (>5.38); Vitamin B12 435 pg/mL (211-911)
[2025-06-04 08:58] LABS: Basophils # (Auto) 0.0 Thou/mm3 (0.0-0.2); Basophils % (Auto) 1 % (0-2.5); Eosinophils # (Auto) 0.1 Thou/mm3 (0.0-0.5); Eosinophils % (Auto) 2 % (0-10); Hematocrit 24.7 % (36.0-46.0); Immature Granulocytes Auto 0.00 Thou/mm3 (0.00-0.00); Lymphocytes # (Auto) 2.3 Thou/mm3 (1.0-4.8); Lymphocytes % (Auto) 65 % (10-50); Mean Corpuscular HGB Conc 32.0 g/dl (31.0-37.0); Mean Corpuscular Hemoglobin 29.8 pg (25.0-35.0); Mean Corpuscular Volume 93 fL (80-100); Monocytes # (Auto) 0.5 Thou/mm3 (0.0-0.8); Monocytes % (Auto) 13 % (0-12); Neutrophils # (Auto) 0.7 Thou/mm3 (1.8-7.7); Neutrophils % (Auto) 20 % (37-80); Nucleated Red Blood Cell # 0.00 Thou/mm3 (0.00-0.00); Nucleated Red Blood Cell % 0 /100 WBC (0); Platelet Count 200 Thou/mm3 (140-440); RDW Standard Deviation 63.7 fL (36.4-46.3); Red Blood Count 2.65 Miln/mm3 (4.00-5.20); White Blood Count 3.5 Thou/mm3 (3.6-11.0)
[2025-06-04 09:15] LABS: Hemoglobin 7.9 g/dL (12.0-16.0)
[2025-06-04 09:19] LABS: Alanine Aminotransferase 48 U/L (10-49); Albumin, Serum 4.3 gm/dL (3.5-5.0); Albumin/Globulin Ratio 1.5 (1.2-2.2); Alkaline Phosphatase 148 U/L (46-116); Anion Gap 12 (7-16); Aspartate Amino Transferase 33 U/L (0-34); BUN/Creatinine Ratio 18 Ratio (12-20); Bilirubin,Total 0.3 mg/dL (0.3-1.2); Blood Urea Nitrogen 9 mg/dL (9-23); Calcium 9.4 mg/dL (8.3-10.6); Calcium (Corrected) 9.4 mg/dL (8.5-10.1); Carbon Dioxide 26.3 mMol/L (20.0-31.0); Chloride 103 mMol/L (98-107); Creatinine (Component) 0.5 mg/dL (0.6-1.3); Globulin 2.8 gm/dL (2.3-3.5); Glucose 129 mg/dL (74-106); Osmolality,Calculated 281 (275-295); Potassium 4.0 mMol/L (3.4-5.1); Sodium 141 mMol/L (136-145); Total Protein 7.1 gm/dL (5.7-8.2); eGFR > 60 See Note
[2025-06-04 13:01] LABS: Carcinoembryonic Antigen 23.6 ng/mL (0.0-5.0)
[2025-06-18 07:59] LABS: Magnesium 1.4 mg/dL (1.6-2.6)
[2025-06-18 08:01] LABS: Alanine Aminotransferase 34 U/L (10-49); Albumin, Serum 4.3 gm/dL (3.5-5.0); Albumin/Globulin Ratio 1.3 (1.2-2.2); Alkaline Phosphatase 138 U/L (46-116); Anion Gap 10 (7-16); Aspartate Amino Transferase 41 U/L (0-34); BUN/Creatinine Ratio 20 Ratio (12-20); Bilirubin,Total 0.3 mg/dL (0.3-1.2); Blood Urea Nitrogen 12 mg/dL (9-23); Calcium 9.7 mg/dL (8.3-10.6); Calcium (Corrected) 9.7 mg/dL (8.5-10.1); Carbon Dioxide 26.2 mMol/L (20.0-31.0); Chloride 104 mMol/L (98-107); Creatinine (Component) 0.6 mg/dL (0.6-1.3); Globulin 3.4 gm/dL (2.3-3.5); Glucose 130 mg/dL (74-106); Osmolality,Calculated 281 (275-295); Potassium 4.1 mMol/L (3.4-5.1); Sodium 140 mMol/L (136-145); Total Protein 7.7 gm/dL (5.7-8.2); eGFR > 60 See Note
[2025-06-18 08:04] LABS: Carcinoembryonic Antigen 28.5 ng/mL (0.0-5.0)
[2025-06-18 08:09] LABS: Basophils # (Auto) 0.1 Thou/mm3 (0.0-0.2); Basophils % (Auto) 1 % (0-2.5); Eosinophils # (Auto) 0.1 Thou/mm3 (0.0-0.5); Eosinophils % (Auto) 1 % (0-10); Hematocrit 29.9 % (36.0-46.0); Hemoglobin 9.8 g/dL (12.0-16.0); Immature Granulocytes Auto 0.05 Thou/mm3 (0.00-0.00); Lymphocytes # (Auto) 2.9 Thou/mm3 (1.0-4.8); Lymphocytes % (Auto) 33 % (10-50); Mean Corpuscular HGB Conc 32.8 g/dl (31.0-37.0); Mean Corpuscular Hemoglobin 30.8 pg (25.0-35.0); Mean Corpuscular Volume 94 fL (80-100); Monocytes # (Auto) 0.7 Thou/mm3 (0.0-0.8); Monocytes % (Auto) 8 % (0-12); Neutrophils # (Auto) 5.0 Thou/mm3 (1.8-7.7); Neutrophils % (Auto) 57 % (37-80); Nucleated Red Blood Cell # 0.00 Thou/mm3 (0.00-0.00); Nucleated Red Blood Cell % 0 /100 WBC (0); Platelet Count 324 Thou/mm3 (140-440); RDW Standard Deviation 64.4 fL (36.4-46.3); Red Blood Count 3.18 Miln/mm3 (4.00-5.20); White Blood Count 8.9 Thou/mm3 (3.6-11.0)
== END 2025-06-20 23:59 | disposition home or self-care (01) ==
LOC: SCTC 09:46
PROVIDERS: PCP Physician Assistant; Referring Provider Physician Assistant; Visit Provider Internal Medicine Hematology & Oncology
DX: Z51.11 Encounter for antineoplastic chemotherapy (principal); C19 Malignant neoplasm of rectosigmoid junction; C78.7 Secondary malignant neoplasm of liver and intrahepatic bile duct; Z90.49 Acquired absence of other specified parts of digestive tract; E11.42 Type 2 diabetes mellitus with diabetic polyneuropathy; Z79.4 Long term (current) use of insulin; Z79.84 Long term (current) use of oral hypoglycemic drugs; D64.9 Anemia, unspecified; E53.8 Deficiency of other specified B group vitamins; E66.9 Obesity, unspecified; Z68.31 Body mass index [BMI] 31.0-31.9, adult; I10 Essential (primary) hypertension
CPT/HCPCS: 36430; 80053; 81001; 82378; 82607; 82728; 82746; 83540; 83550; 83735; 85025; 86850; 86900; 86901; 86923; 96360; 96366; 96367; 96368; 96372; 96375; 96409; 96411; 96413; 96415; 96416; 96417; A4216; J0461; J0640; J1100; J1200; J1642; J1756; J2405; J3420; J3475; J3490; J7040; J7050; J9055; J9190; J9206; P9016; Q5101; A9270